=== PATIENT | female | born 1935 | race Caucasian/White ===

== ENCOUNTER 2019-06-30 09:35 | Inpatient (IN) | payer MEDICARE, OTHER ==
[~2019-06-30] VITALS: Ht 162.6 cm; Wt 70.0 kg
[2019-06-30] MEDS: zinc sulfate 220mg capsule PO SCH (08:00)
[~2019-06-30 09:35] MED LIST: ASPI-1265 PO; BIOT10005 PO; CARV12.5 PO; CRAN400C; CYAN-51 PO; DOCU-272; DOXY100T29 PO; ESTR1PAT TD; FENO145T38 PO; FERR325T32 PO; FOLI0.8T PO; FURO-149 PO; ISOS30TA6 PO; LISI40TA4 PO; MULT-1141 PO; NIAC500T7 PO; OMEG-42 PO; OMEP40CA13 PO; OXYC-150 PO; POLY17PO10 PO; POTA20TA19 PO; PRAM0.122 PO; PREG50CA PO; PSYL3.4P5 PO; ROSU10TA2 PO; TICA90TA PO; TRIA15OI9 TOP; ZINC50TA60 PO
[2019-06-30 10:59] LABS: PARTIAL THROMBOPLASTIN TIME 30 SECONDS (22-32)
[2019-06-30 11:01] LABS: ALANINE AMINOTRANSFERASE 21 U/L (12-78); ALBUMIN 2.8 G/DL (3.4-5.0); ALBUMIN/GLOBULIN RATIO 0.8 (1.1-1.5); ALKALINE PHOSPHATASE 62 IU/L (46-116); ANION GAP 8 (8-16); ASPARTATE AMINO TRANSFERASE 19 U/L (10-37); BILIRUBIN,TOTAL 0.3 MG/DL (0.1-1.0); BLOOD UREA NITROGEN 63 MG/DL (7-18); BUN/CREATININE RATIO 20.9 (6.6-38.0); CALCIUM 8.5 MG/DL (8.5-10.1); CHLORIDE 109 MMOL/L (99-107); CREATININE 3.02 MG/DL (0.40-0.90); GLUCOSE 123 MG/DL (70-104); POTASSIUM 3.8 MMOL/L (3.5-5.1); SODIUM 142 MMOL/L (135-145); TOTAL CARBON DIOXIDE 25.1 MMOL/L (24-32); TOTAL PROTEIN 6.2 G/DL (6.4-8.2); eGFR 15 ML/MIN
[2019-06-30 11:13] LABS: BASOPHILS % (AUTO) 0.2 % (0-1); EOSINOPHILS # (AUTO) 0.1 X10'3 (0-0.9); EOSINOPHILS % (AUTO) 2.1 % (0-6); HEMATOCRIT 24.2 % (35.0-45.0); HEMOGLOBIN 8.1 g/dl (12.0-16.0); LYMPHOCYTES # (AUTO) 1.1 X10'3 (1.1-4.8); LYMPHOCYTES % (AUTO) 17.7 % (21-51); MEAN CORPUSCULAR HEMOGLOBIN 31.6 PG (27.0-31.0); MEAN CORPUSCULAR HGB CONC 33.6 g/dL (33.0-36.5); MEAN CORPUSCULAR VOLUME 94.3 FL (78-98); MONOCYTES # (AUTO) 0.4 X10'3 (0-0.9); MONOCYTES % (AUTO) 7.3 % (2-12); NEUTROPHILS # (AUTO) 4.4 X10'3 (1.8-7.7); NEUTROPHILS % (AUTO) 72.7 % (42-75); PLATELET COUNT 201 X10'3 (140-440); RED BLOOD COUNT 2.57 X10'6 (4.20-5.60); WHITE BLOOD COUNT 6.1 X10'3 (4.5-11.0)
[2019-06-30] MEDS ORDERED: ondansetron/PF 4mg/2ml inj IV PRN (12:45)
[2019-06-30] MEDS ORDERED: magnesium Cl slow-release 64mg tablet PO PRN (12:45)
[2019-06-30] MEDS ORDERED: magnesium 2GM in 50ml NS 50 ML IV PRN (12:45)
[2019-06-30] MEDS ORDERED: magnesium 4gm in 100ml NS 100 ML IV PRN (12:45)
[2019-06-30] MEDS ORDERED: morphine 2 MG/ML inj. syringe IV PRN (12:45)
[2019-06-30] MEDS ORDERED: potassium Cl 20 mEq SR tablet PO PRN ×2 (12:45)
[2019-06-30] MEDS ORDERED: potassium CL 10mEq/100ml bag 100 ML IV PRN ×2 (12:45)
[2019-06-30] MEDS ORDERED: acetaminophen 325mg tablet PO PRN ×2 (12:45)
[2019-06-30] MEDS ORDERED: triamcinolone acetonide 0.1% ointment 15gm TP PRN ×2 (15:00→16:23)
[2019-06-30] MEDS ORDERED: CRAN500C4 PO (16:21)
[2019-06-30] MEDS ORDERED: FURO-150 PO (16:21)
[2019-06-30] MEDS ORDERED: CHOL20004 PO (16:21)
--- NOTE | 2019-06-30 16:49 | NUR ---
Received from ER in stable condition. Oriented to room, unit, and plan of care. Call light in reach.
[2019-06-30 18:00] VITALS: BP 187/77
--- NOTE | 2019-06-30 18:20 | NUR ---
Problems reprioritized. Patient report given, questions answered & plan of care reviewed with jeremy. Addendum: 06/30/19 at 1821 by Sagrario Mota RN Problems reprioritized. Patient report given, questions answered & plan of care reviewed with reji.
--- NOTE | 2019-06-30 18:25 | NUR ---
Patient in room PCU 3023. I have received report from Sagrario MEDINA and had the opportunity to ask questions and assume patient care.
[2019-06-30] MEDS: K and/or MAG REPLACEMENT MC SCH (20:00)
[2019-06-30] MEDS: ticagrelor 90mg tablet PO SCH (20:41)
[2019-06-30] MEDS: furosemide 10 MG/1 ML 10ml inj IV SCH (20:41)
[2019-06-30] MEDS: heparin, porcine 5000 units/ml vial SQ SCH (20:42)
[2019-06-30] MEDS: docusate sod 100mg capsule PO SCH (20:42)
[2019-06-30] MEDS: carVEDilol 12.5mg tablet PO SCH (20:42)
[2019-06-30] MEDS: HYDROcodone/acetaminophen 5mg/325mg tablet PO PRN (20:43)
[2019-06-30] MEDS ORDERED: temazepam 15mg capsule PO PRN (21:00)
[2019-06-30] MEDS ORDERED: pramipexole 0.25mg tablet PO SCH (21:00)
[2019-06-30] MEDS ORDERED: pregabalin 75mg capsule PO SCH (21:00)
[2019-06-30 22:00] VITALS: BP 144/69
[2019-07-01 02:00] VITALS: BP 178/73
[2019-07-01 04:00] VITALS: BP 166/80
[2019-07-01 06:00] VITALS: BP 170/62
--- NOTE | 2019-07-01 06:58 | NUR ---
Problems reprioritized. Patient report given, questions answered & plan of care reviewed with Amy MEDINA.
--- NOTE | 2019-07-01 07:10 | NUR ---
Patient in room PCU 3023B. I have received report from Guillermina MEDINA and had the opportunity to ask questions and assume patient care. Patient laying in bed, eyes closed. VS stable at this time.
[2019-07-01] MEDS ORDERED: pregabalin 25mg capsule PO SCH (07:30)
[2019-07-01] MEDS ORDERED: pantoprazole 40mg Tablet.DR PO SCH (07:30)
[2019-07-01] MEDS ORDERED: ferrous sulfate 325mg tablet PO SCH (08:00)
[2019-07-01] MEDS: K and/or MAG REPLACEMENT MC SCH (08:00)
[2019-07-01] MEDS ORDERED: isosorbide mononitrate 30mg tab.SR.24H PO SCH (08:00)
[2019-07-01] MEDS ORDERED: DOXYCYCLINE 100MG CAPSULE PO SCH (08:00)
[2019-07-01] MEDS ORDERED: aspirin 81mg tablet.DR PO SCH (08:00)
[2019-07-01] MEDS ORDERED: lisinopril 20mg tablet PO SCH (08:00)
[2019-07-01] MEDS ORDERED: atorvastatin 20mg tablet PO SCH (08:00)
[2019-07-01] MEDS: docusate sod 100mg capsule PO SCH (08:00)
[2019-07-01] MEDS ORDERED: fenofibrate 145mg tablet PO SCH (08:00)
[2019-07-01 08:40] LABS: BASOPHILS % (AUTO) 0.3 % (0-1); EOSINOPHILS % (AUTO) 0.6 % (0-6); HEMATOCRIT 25.7 % (35.0-45.0); HEMOGLOBIN 8.5 g/dl (12.0-16.0); LYMPHOCYTES % (AUTO) 13.5 % (21-51); MEAN CORPUSCULAR HEMOGLOBIN 31.2 PG (27.0-31.0); MEAN CORPUSCULAR HGB CONC 33.1 g/dL (33.0-36.5); MEAN CORPUSCULAR VOLUME 94.2 FL (78-98); MEAN PLATELET VOLUME 8.9 FL (7.4-10.4); MONOCYTES # (AUTO) 0.4 X10'3 (0-0.9); MONOCYTES % (AUTO) 5.7 % (2-12); NEUTROPHILS # (AUTO) 5.9 X10'3 (1.8-7.7); NEUTROPHILS % (AUTO) 79.9 % (42-75); PLATELET COUNT 221 X10'3 (140-440); RED BLOOD COUNT 2.72 X10'6 (4.20-5.60); RED CELL DISTRIBUTION WIDTH 14.6 % (11.5-14.5); WHITE BLOOD COUNT 7.4 X10'3 (4.5-11.0)
[2019-07-01 09:06] LABS: ALBUMIN 2.8 G/DL (3.4-5.0); ANION GAP 9 (8-16); BLOOD UREA NITROGEN 61 MG/DL (7-18); BUN/CREATININE RATIO 21.3 (6.6-38.0); CALCIUM 8.4 MG/DL (8.5-10.1); CHLORIDE 108 MMOL/L (99-107); CHOL/HDL RATIO 3.7 (0.00-4.99); CHOLESTEROL 114 MG/DL (0-200); CREATININE 2.87 MG/DL (0.40-0.90); GLUCOSE 168 MG/DL (70-104); HDL CHOLESTEROL 31 MG/DL (35-60); LDL CHOLESTEROL 50 MG/DL (50-100); POTASSIUM 3.7 MMOL/L (3.5-5.1); SODIUM 143 MMOL/L (135-145); TOTAL CARBON DIOXIDE 26.5 MMOL/L (24-32); TRIGLYCERIDES 236 MG/DL (20-135); eGFR 16 ML/MIN
[2019-07-01] MEDS: ticagrelor 90mg tablet PO SCH (09:12)
[2019-07-01] MEDS: furosemide 10 MG/1 ML 10ml inj IV SCH (09:12)
[2019-07-01] MEDS: carVEDilol 12.5mg tablet PO SCH (09:13)
[2019-07-01] MEDS: zinc sulfate 220mg capsule PO SCH (09:17)
[2019-07-01] MEDS: heparin, porcine 5000 units/ml vial SQ SCH (09:17)
[2019-07-01] MEDS: HYDROcodone/acetaminophen 5mg/325mg tablet PO PRN (09:18)
[2019-07-01] MEDS ORDERED: pneumococcal 23-VAL P-sac vacc 25 mcg/0.5ml vial IMVAC ONE (10:00)
[2019-07-01] MEDS ORDERED: FLU VACC QS 2019-20 (6 MOS UP) 60 MCG/0.5 ML VIAL IMVAC ONE (10:00)
[2019-07-01 11:00] VITALS: BP 172/61
--- NOTE | 2019-07-01 15:08 | NUR ---
Per MD order, Dr. Burrows, patient is stable for discharge home. Discharge packet printed and reviewed with patient. No new prescriptions to call to pharmacy. IV removed, tele monitor removed. All belongings sent with patient. All questions answered. Patient discharged home, escorted to private vehicle via wheelchair to go home with family.
== END 2019-07-01 15:30 | disposition home health service (06) | DRG 190 ==
LOC: ER 09:35 → ED HOLD 12:50 → PCU 3S 14:46
PROVIDERS: ADMIT Internal Medicine; ATTEND Internal Medicine
PROC: 3E0234Z Introduction of Serum, Toxoid and Vaccine into Muscle, Percutaneous Approach (ICD-10-PCS; principal; 2019-07-01)
DX: J44.1 Chronic obstructive pulmonary disease with (acute) exacerbation (principal); I50.33 Acute on chronic diastolic (congestive) heart failure; L12.0 Bullous pemphigoid; D63.8 Anemia in other chronic diseases classified elsewhere; E78.5 Hyperlipidemia, unspecified; G89.4 Chronic pain syndrome; I25.10 Atherosclerotic heart disease of native coronary artery without angina pectoris; N18.3 Chronic kidney disease, stage 3 (moderate); Z23 Encounter for immunization; Z88.2 Allergy status to sulfonamides; Z88.8 Allergy status to other drugs, medicaments and biological substances; Z88.5 Allergy status to narcotic agent; Z82.3 Family history of stroke; Z80.9 Family history of malignant neoplasm, unspecified
CPT/HCPCS: 36415; 71045; 80048; 80053; 80061; 83735; 83880; 85025; 85610; 85730; 86885; 86900; 86901; 87081; 90732; 93005; 93306; 97161; 97530; 99285; G0378; J1644; J1940

== ENCOUNTER 2019-11-27 10:50 | Emergency (ER) | payer MEDICARE, OTHER ==
[~2019-11-27] VITALS: Ht 162.6 cm; Wt 77.3 kg
[~2019-11-27 10:50] MED LIST changes: -BIOT10005 PO; +CHOL20004 PO; -CRAN400C; -CYAN-51 PO; -DOCU-272; -ESTR1PAT TD; -FOLI0.8T PO; +FURO-150 PO; -NIAC500T7 PO; -OMEG-42 PO; -POTA20TA19 PO
[2019-11-27] MEDS ORDERED: bacitracin 15gm ointment TP ONE (11:20)
[2019-11-27] MEDS ORDERED: normal saline 1000ML IV soln IV ONE (11:20)
[2019-11-27 11:49] LABS: BASOPHILS % (AUTO) 0.1 % (0-1); EOSINOPHILS % (AUTO) 0 % (0-6); HEMATOCRIT 29.7 % (35.0-45.0); HEMOGLOBIN 9.6 g/dl (12.0-16.0); LYMPHOCYTES # (AUTO) 0.6 X10'3 (1.1-4.8); LYMPHOCYTES % (AUTO) 4.2 % (21-51); MEAN CORPUSCULAR HEMOGLOBIN 28.9 PG (27.0-31.0); MEAN CORPUSCULAR HGB CONC 32.4 g/dL (33.0-36.5); MEAN CORPUSCULAR VOLUME 89.4 FL (78-98); MEAN PLATELET VOLUME 8.9 FL (7.4-10.4); MONOCYTES # (AUTO) 0.4 X10'3 (0-0.9); MONOCYTES % (AUTO) 2.8 % (2-12); NEUTROPHILS # (AUTO) 14.1 X10'3 (1.8-7.7); NEUTROPHILS % (AUTO) 92.9 % (42-75); PLATELET COUNT 306 X10'3 (140-440); RED BLOOD COUNT 3.32 X10'6 (4.20-5.60); RED CELL DISTRIBUTION WIDTH 15.7 % (11.5-14.5); WHITE BLOOD COUNT 15.2 X10'3 (4.5-11.0)
[2019-11-27 11:51] LABS: ALANINE AMINOTRANSFERASE 13 U/L (12-78); ALBUMIN 2.4 G/DL (3.4-5.0); ALBUMIN/GLOBULIN RATIO 0.6 (1.1-1.5); ALKALINE PHOSPHATASE 68 IU/L (46-116); ANION GAP 14 (8-16); ASPARTATE AMINO TRANSFERASE 30 U/L (10-37); BLOOD UREA NITROGEN 48 MG/DL (7-18); BUN/CREATININE RATIO 17.1 (6.6-38.0); CALCIUM 7.8 MG/DL (8.5-10.1); CHLORIDE 110 MMOL/L (99-107); CREATININE 2.81 MG/DL (0.40-0.90); GLUCOSE 111 MG/DL (70-104); POTASSIUM 3.6 MMOL/L (3.5-5.1); SODIUM 146 MMOL/L (135-145); TOTAL CARBON DIOXIDE 22.2 MMOL/L (24-32); TOTAL PROTEIN 6.3 G/DL (6.4-8.2); eGFR 16 ML/MIN
[2019-11-27] MEDS ORDERED: CefTRIAXone 2gm/D5W 50ml 50 ML IV ONE (12:10)
[2019-11-27 13:01] LABS: CLARITY,URINE SLIGHTLY CLOUDY (Clear); GLUCOSE, URINE NEGATIVE (Neg); KETONES,URINE TRACE mg/dl (Neg); LEUKOCYTE ESTERASE ,URINE SMALL (Neg); NITRITES, URINE POSITIVE (Neg); OCCULT BLOOD,URINE SMALL (Neg); PROTEIN,URINE >=300 mg/dl (Neg)
[2019-11-27 13:06] LABS: COLOR,URINE DARK YELLOW (Yellow); UA COLLECTION TYPE CLN CATCH MIDSTREAM
[2019-11-27 13:07] LABS: WBC,URINE 30-50 /HPF (0-4)
[2019-11-27 13:08] LABS: BACTERIA,URINE 4+ /HPF (Neg); MUCUS STRANDS FEW /LPF (Neg); RBC,URINE 0-2 /HPF (0-2); SQUAMOUS EPITHELIAL CELL,UR FEW /LPF (FEW); WBC CLUMPS,URINE MODERATE /HPF (NEGATIVE)
[2019-11-27] MEDS ORDERED: CEPH250T PO (13:29)
[2019-11-27 14:06] VITALS: BP 114/61
== END 2019-11-27 14:09 | disposition home or self-care (01) ==
LOC: ER 10:50
DX: N39.0 Urinary tract infection, site not specified (principal); L03.116 Cellulitis of left lower limb; L03.115 Cellulitis of right lower limb; L12.0 Bullous pemphigoid; R50.9 Fever, unspecified; Z86.73 Personal history of transient ischemic attack (TIA), and cerebral infarction without residual deficits; J44.9 Chronic obstructive pulmonary disease, unspecified; Z88.2 Allergy status to sulfonamides; Z88.5 Allergy status to narcotic agent; Z79.82 Long term (current) use of aspirin; Z79.899 Other long term (current) drug therapy
CPT/HCPCS: 36415; 71045; 80053; 81001; 83605; 84145; 85025; 87040; 87088; 96365; 99284; J0696; J7030; 87186

== ENCOUNTER 2020-01-08 23:51 | Inpatient (IN) | payer MEDICARE, OTHER ==
[~2020-01-08] VITALS: Ht 162.6 cm; Wt 76.2 kg
[2020-01-09] MEDS ORDERED: AMLO5TAB PO (00:13)
[2020-01-09] MEDS ORDERED: normal saline 1000ML IV soln IVB ONE (00:25)
[2020-01-09 00:41] LABS: BASOPHILS % (AUTO) 0.2 % (0-1); EOSINOPHILS # (AUTO) 0.1 X10'3 (0-0.9); EOSINOPHILS % (AUTO) 1.5 % (0-6); HEMATOCRIT 28.1 % (35.0-45.0); HEMOGLOBIN 8.9 g/dl (12.0-16.0); LYMPHOCYTES # (AUTO) 0.9 X10'3 (1.1-4.8); LYMPHOCYTES % (AUTO) 13.3 % (21-51); MEAN CORPUSCULAR HEMOGLOBIN 29.3 PG (27.0-31.0); MEAN CORPUSCULAR HGB CONC 31.8 g/dL (33.0-36.5); MEAN CORPUSCULAR VOLUME 92.3 FL (78-98); MONOCYTES # (AUTO) 0.4 X10'3 (0-0.9); MONOCYTES % (AUTO) 5.6 % (2-12); NEUTROPHILS # (AUTO) 5.1 X10'3 (1.8-7.7); NEUTROPHILS % (AUTO) 79.4 % (42-75); PLATELET COUNT 205 X10'3 (140-440); RED BLOOD COUNT 3.05 X10'6 (4.20-5.60); RED CELL DISTRIBUTION WIDTH 18.3 % (11.5-14.5); WHITE BLOOD COUNT 6.4 X10'3 (4.5-11.0)
[2020-01-09 00:47] LABS: CLARITY,URINE SLIGHTLY CLOUDY (Clear); COLOR,URINE YELLOW (Yellow); GLUCOSE, URINE NEGATIVE (Neg); KETONES,URINE TRACE mg/dl (Neg); LEUKOCYTE ESTERASE ,URINE NEGATIVE (Neg); NITRITES, URINE NEGATIVE (Neg); OCCULT BLOOD,URINE NEGATIVE (Neg); PH,URINE 5.5 (4.8-8.0); PROTEIN,URINE >=300 mg/dl (Neg); UROBILINOGEN,URINE 0.2 E.U/dL (0.2-1.0)
[2020-01-09 00:49] LABS: UA COLLECTION TYPE STRAIGHT CATH
[2020-01-09 00:51] LABS: WBC,URINE 0-4 /HPF (0-4)
[2020-01-09 00:52] LABS: AMORPHOUS URATES 4+; BACTERIA,URINE NONE SEEN /HPF (Neg); RBC,URINE NONE SEEN /HPF (0-2); SQUAMOUS EPITHELIAL CELL,UR FEW /LPF (FEW)
[2020-01-09 00:59] LABS: ALANINE AMINOTRANSFERASE 20 U/L (12-78); ALBUMIN 2.3 G/DL (3.4-5.0); ALBUMIN/GLOBULIN RATIO 0.7 (1.1-1.5); ALKALINE PHOSPHATASE 54 IU/L (46-116); ANION GAP 16 (8-16); ASPARTATE AMINO TRANSFERASE 33 U/L (10-37); BILIRUBIN,TOTAL 0.5 MG/DL (0.1-1.0); BLOOD UREA NITROGEN 79 MG/DL (7-18); BUN/CREATININE RATIO 16.2 (6.6-38.0); CALCIUM 7.5 MG/DL (8.5-10.1); CHLORIDE 110 MMOL/L (99-107); CREATININE 4.89 MG/DL (0.40-0.90); GLUCOSE 106 MG/DL (70-104); POTASSIUM 4.2 MMOL/L (3.5-5.1); SODIUM 143 MMOL/L (135-145); TOTAL PROTEIN 5.7 G/DL (6.4-8.2); eGFR 8 ML/MIN
[2020-01-09] MEDS ORDERED: magnesium hydroxide 30ml (MOM) UD suspension PO PRN (01:50)
[2020-01-09] MEDS ORDERED: potassium CL 10mEq/100ml bag 100 ML IV PRN ×2 (01:50)
[2020-01-09] MEDS ORDERED: acetaminophen 325mg tablet PO PRN ×2 (01:50→19:10)
[2020-01-09] MEDS ORDERED: ondansetron/PF 4mg/2ml inj IV PRN (01:50)
[2020-01-09] MEDS ORDERED: potassium Cl 20 mEq SR tablet PO PRN ×2 (01:50)
[2020-01-09] MEDS ORDERED: magnesium Cl slow-release 64mg tablet PO PRN (01:50)
[2020-01-09] MEDS ORDERED: bisacodyl 10mg suppository rectal RC PRN (01:50)
[2020-01-09] MEDS ORDERED: mag hydrox/Alum hydrox/simeth 30ml oral suspension PO PRN (01:50)
[2020-01-09] MEDS ORDERED: magnesium 4gm in 100ml NS 100 ML IV PRN (01:50)
[2020-01-09] MEDS ORDERED: magnesium 2GM in 50ml NS 50 ML IV PRN (01:50)
[2020-01-09] MEDS: normal saline 1000ml 1,000 ML IV SCH ×4 (02:04→15:44)
[2020-01-09 02:30] VITALS: BP 131/45
--- NOTE | 2020-01-09 02:30 | NUR ---
0200:Patient in room LAVERN 354. I have received report from ED RN, and had the opportunity to ask questions and assume patient care. Patient arrived to unit, via Fabule transporting patient.
--- NOTE | 2020-01-09 06:46 | NUR ---
Problems reprioritized. Patient report given, questions answered & plan of care reviewed with Joselyn and CAROL Juarez.
--- NOTE | 2020-01-09 07:00 | NUR ---
Patient in room LAV[facility] 354. I have received report from Corey MEDINA and had the opportunity to ask questions and assume patient care.
[2020-01-09 08:00] VITALS: BP 148/73
[2020-01-09] MEDS: carVEDilol 12.5mg tablet PO SCH ×2 (08:00→21:46)
[2020-01-09] MEDS: K and/or MAG REPLACEMENT MC SCH ×2 (08:00→20:00)
[2020-01-09] MEDS: ferrous sulfate 325mg tablet PO SCH (08:00)
[2020-01-09] MEDS ORDERED: furosemide 40mg tablet PO SCH (08:00)
[2020-01-09] MEDS ORDERED: lisinopril 20mg tablet PO SCH (08:00)
[2020-01-09] MEDS: amLODIPine 5mg tablet PO SCH (08:00)
[2020-01-09] MEDS ORDERED: pregabalin 25mg capsule PO SCH ×2 (08:00→21:00)
[2020-01-09] MEDS ORDERED: etomidate 2mg/ml inj. ONE (08:00)
[2020-01-09] MEDS: pantoprazole 40mg Tablet.DR PO SCH (08:00)
[2020-01-09] MEDS: docusate sod 100mg capsule PO SCH ×2 (08:00→21:46)
[2020-01-09] MEDS ORDERED: sod chloride 0.9% 10ml flush syringe IV ONE (08:00)
[2020-01-09] MEDS: isosorbide mononitrate 30mg tab.SR.24H PO SCH (08:00)
[2020-01-09] MEDS: aspirin 81mg tab.chew PO SCH (08:00)
--- NOTE | 2020-01-09 08:57 | NUR ---
MESSAGE: José Miguel Vera, Rm 354A. Pt difficult to arouse, answers quietly but appropriately. extremeties cold, Cap refill +, pulses hard to palpate. lungs clear, edematous, VS 138/67,95% RA,HR 65, temp 96.6 Ax. Would you please come see her. Ann [phone]
--- NOTE | 2020-01-09 09:30 | NUR ---
Pt somulent, not responding well, pt PO meds held until Dr Ivy assess. Concerns regarding pt's ability to swallow.
--- NOTE | 2020-01-09 10:43 | NUR ---
PAGER ID: [phone] MESSAGE: [phone] José Miguel Polklley- Pt is still very sleepy, A & Ox4, Extremely edematous throughout 4+ pitting.All PO meds held, pt unable to follow commands.BUN79,CR4.89, GFR8. IVF ns@100- CHF can we decrease fluids?Keyon consult? Thank you Ann/Joselyn
[2020-01-09 11:00] VITALS: BP 136/64
--- NOTE | 2020-01-09 11:36 | NUR ---
Patients Michael called to check on his 's status. I asked Michael if his was seeing a kidney doctor and he stated that she see's Dr Lopez. Patient stated that she does still void and has never had dialysis. I asked Michael when was the last time patient took her Lyrica and he stated yesterday morning 50mg. 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 I called Anna with wound care and made her aware of the above dressing changes patient does at home. Primary RN Miguel aware of above information and that patients would like Dr Dimas to call if possible after he see's patient. Michael states if phone goes to voice mail to start talking he screens all his calls.
--- NOTE | 2020-01-09 12:15 | NUR ---
Dr Ivy at pt's bedside. Advised of nonadmin of morning meds. Orders received.
--- NOTE | 2020-01-09 14:19 | NUR ---
Spoke with Dr. Dimas regarding request for extended piv for patient. Per ok to not place extended due to patients elevated creatinine . Ann RN made aware. Pt does have a working PIV, and lab sonya pt with no difficulty while I was in the room. Jaleel Hamilton PICC RN
--- NOTE | 2020-01-09 15:00 | NUR ---
RECEIVED TELEPHONE REPORT FROM CAROL TAVARES
--- NOTE | 2020-01-09 15:13 | NUR ---
Problems reprioritized. Patient report given, questions answered & plan of care reviewed with Selvin RN PCU.
--- NOTE | 2020-01-09 15:20 | NUR ---
Pt transferred to PCU via hospital bed, accompanied by 2 RNs. Pt and all personal belongings to room 3013A. Care assumed by Selvin MEDINA PCU.
[2020-01-09 15:30] VITALS: BP 117/45
--- NOTE | 2020-01-09 15:30 | NUR ---
RECEIVED VIA BED FROM SURGICAL. AGREE WITH PRIOR ASSESSMENT.
--- NOTE | 2020-01-09 16:31 | NUR ---
IS AROUSABLE TO VOICE. TRYS TO SAY A WORK, VERY SOFT/WEAK VOICE, THE APPEARS TO GO BACK TO SLEEP.
--- NOTE | 2020-01-09 17:06 | NUR ---
PAGER ID: [phone] MESSAGE: DR. ANDRE, [id number], WHEN AWAKE, C/O 10 BACK PAIN. DO YOU WANT HER TO HAVE ANY PAIN MEDICATION PER IV? MARIAH [phone]. TY.
[2020-01-09 18:00] VITALS: BP 143/61
--- NOTE | 2020-01-09 18:36 | NUR ---
Problems reprioritized. Patient report given, questions answered & plan of care reviewed with CAROL POST.
[2020-01-09] MEDS ORDERED: pramipexole 0.25mg tablet PO SCH (21:00)
[2020-01-09] MEDS: CEFEPIME 2gm in D5W 50mL 50 ML IV SCH (21:45)
[2020-01-09 21:52] VITALS: BP 130/52
[2020-01-10] VITALS (24 sets, daily range): BP systolic 78–148; BP diastolic 32–92
[2020-01-10] MEDS: normal saline 1000ml 1,000 ML IV SCH (03:11)
--- NOTE | 2020-01-10 03:15 | NUR ---
paged DR. Claire about pt's getting NS at 100, [place] [address], swelling in her vigina and BLE, lungs are clear. Dr. Claire ordered NS @50cc/hr, noted. Addendum: 01/10/20 at 0318 by Carey Quick RN also notified Dr. Claire about pt's output of only 35cc since the start of the shift, bladder scanned pt and only has 10cc oin her bladder
--- NOTE | 2020-01-10 03:22 | NUR ---
Patient in room U 3013. I have received report from CAROL Montalvo and had the opportunity to ask questions and assume patient care. Addendum: 01/10/20 at 0322 by Carey Quick RN Amended: Links added.
[2020-01-10 06:09] LABS: BASOPHILS % (AUTO) 0.1 % (0-1); EOSINOPHILS % (AUTO) 0 % (0-6); HEMOGLOBIN 9.1 g/dl (12.0-16.0); LYMPHOCYTES # (AUTO) 0.9 X10'3 (1.1-4.8); LYMPHOCYTES % (AUTO) 11.2 % (21-51); MEAN CORPUSCULAR HEMOGLOBIN 29.2 PG (27.0-31.0); MEAN CORPUSCULAR HGB CONC 31.4 g/dL (33.0-36.5); MEAN CORPUSCULAR VOLUME 92.9 FL (78-98); MEAN PLATELET VOLUME 10.2 FL (7.4-10.4); MONOCYTES # (AUTO) 0.3 X10'3 (0-0.9); MONOCYTES % (AUTO) 3.8 % (2-12); NEUTROPHILS # (AUTO) 6.9 X10'3 (1.8-7.7); NEUTROPHILS % (AUTO) 84.9 % (42-75); PLATELET COUNT 210 X10'3 (140-440); RED BLOOD COUNT 3.12 X10'6 (4.20-5.60); RED CELL DISTRIBUTION WIDTH 18.7 % (11.5-14.5); WHITE BLOOD COUNT 8.1 X10'3 (4.5-11.0)
[2020-01-10 06:32] LABS: ALANINE AMINOTRANSFERASE 20 U/L (12-78); ALBUMIN 2.1 G/DL (3.4-5.0); ALBUMIN/GLOBULIN RATIO 0.6 (1.1-1.5); ALKALINE PHOSPHATASE 46 IU/L (46-116); ANION GAP 22 (8-16); ASPARTATE AMINO TRANSFERASE 34 U/L (10-37); BILIRUBIN,TOTAL 0.7 MG/DL (0.1-1.0); BLOOD UREA NITROGEN 88 MG/DL (7-18); BUN/CREATININE RATIO 16.4 (6.6-38.0); CALCIUM 7.7 MG/DL (8.5-10.1); CHLORIDE 110 MMOL/L (99-107); CREATININE 5.38 MG/DL (0.40-0.90); GLUCOSE 110 MG/DL (70-104); MAGNESIUM 2.8 MG/DL (1.5-2.4); POTASSIUM 4.6 MMOL/L (3.5-5.1); SODIUM 143 MMOL/L (135-145); TOTAL PROTEIN 5.5 G/DL (6.4-8.2); eGFR 8 ML/MIN
[2020-01-10 06:37] LABS: HEMOGLOBIN A1C 5.2 % (4.5-6.2)
[2020-01-10 06:42] LABS: TOTAL CARBON DIOXIDE 10.8 MMOL/L (24-32)
--- NOTE | 2020-01-10 06:50 | NUR ---
Patient in room PCU 3013. I have received report from Loreto Garcia RN and had the opportunity to ask questions and assume patient care.
[2020-01-10 06:53] LABS: ANISOCYTOSIS 2+; PLATELET ESTIMATE NORMAL
--- NOTE | 2020-01-10 06:56 | NUR ---
Problems reprioritized. Patient report given, questions answered & plan of care reviewed with CAROL Giles.
--- NOTE | 2020-01-10 07:25 | NUR ---
Notified Dr. Ivy this am that "pt kelin in 13A, only 185 urine output in 24 hrs and has critical CO2 this am of 10.8." Addendum: 01/10/20 at 1440 by June Lorenz RN Dr. Olivera
[2020-01-10] MEDS: aspirin 81mg tab.chew PO SCH (07:55)
[2020-01-10] MEDS: carVEDilol 12.5mg tablet PO SCH ×2 (07:55→21:25)
[2020-01-10] MEDS: pantoprazole 40mg Tablet.DR PO SCH (07:55)
[2020-01-10] MEDS: ferrous sulfate 325mg tablet PO SCH (07:55)
[2020-01-10] MEDS: isosorbide mononitrate 30mg tab.SR.24H PO SCH (07:55)
[2020-01-10] MEDS: docusate sod 100mg capsule PO SCH ×2 (07:55→20:00)
[2020-01-10] MEDS: levoTHYROXINE 75mcg tablet PO SCH (07:55)
[2020-01-10] MEDS: CEFEPIME 2gm in D5W 50mL 50 ML IV SCH ×2 (07:56→22:13)
[2020-01-10] MEDS: amLODIPine 5mg tablet PO SCH (08:00)
[2020-01-10] MEDS: K and/or MAG REPLACEMENT MC SCH ×2 (08:00→20:00)
[2020-01-10 12:45] LABS: ABG BASE EXCESS -19.8 mmol/L (-2.0-2.0); ABG HCO3 8.4 mmol/L (22.0-26.0); ABG OXYGEN SATURATION 96.4 % (94-97); ABG PCO2 (T) 27.7 mmHg (32.0-45.0); ABG PO2 (T) 108.5 mmHg (75.0-100.0); ALLEN'S TEST POSITIVE; FCOHb 0.3 % (0.0-3.9); FLOW 4 L/min; FMetHb 0.3 % (0.0-1.5); FO2Hb 95.8 % (94-97); TOTAL HEMOGLOBIN 9.9 G/dl (12.0-16.0)
[2020-01-10] MEDS: sodium bicarbonate (8.4%) inj. 100 MEQ in dextrose 5%-water 1,000 ML IV SCH ×2 (12:49→20:16)
--- NOTE | 2020-01-10 13:00 | NUR ---
MULTIPLE ATTEMPTS TO THREAD PICC LINE, UNABLE TO ADVANCE, PICC LINE CUT TO MIDLINE LENGTH AND SECURED. YA MEDINA NOTIFIED Addendum: 01/10/20 at 1323 by Annmarie Hamilton RN Jaleel [facility] RN
[2020-01-10] MEDS ORDERED: FENTANYL-0.9 % NACL/PF 100 ML IV PRN (13:36)
[2020-01-10] MEDS ORDERED: midazolam 100mg in NS 100ml 100 ML IV PRN (13:36)
[2020-01-10] MEDS ORDERED: NORepinephrine 8mg/ 250ml NS 250 ML IV ONE ×2 (13:39→22:02)
[2020-01-10] MEDS ORDERED: midazolam 2 mg/2 ml injection IV ONE (13:40)
[2020-01-10] MEDS ORDERED: ipratropium/albuterol 3ml nebule NEB PRN (13:40)
[2020-01-10] MEDS ORDERED: etomidate 2mg/ml inj. IV ONE (13:40)
--- NOTE | 2020-01-10 13:45 | NUR ---
Pt arrived via bed from floor. A&O x3 at this time. Dr. Lopez spoke with patient about treatment options and pt agreed to get HD at this time and be intubated. Pt's main concern was she did not want to have a lot of pain. Pt was sedated with Etomidate, versed and fentanyl during intubation, HD and Quad lumen cath placement. Versed and Fentanyl drips started. Pt's BP declining after HD started so Levophed was started and titrated.
--- NOTE | 2020-01-10 13:50 | NUR ---
Spoke with FITNESS CONSULTANT to give report, ICU nurse states that Lynda charge aide is aware of patient (present upon rapid response for this patient and will give report to receiving nurse.
[2020-01-10] MEDS: fentaNYL/PF 50MCG/1 ML 2ML syringe IV PRN ×4 (13:58→14:14)
--- NOTE | 2020-01-10 14:00 | NUR ---
Transferred patient down to ICU room 2014A with CAROL Howell at bedside and receiving nurse CAROL Hernandez.
[2020-01-10] MEDS ORDERED: heparin 1,000unit/ml 10ml vial 10 ML IV ONE (14:36)
[2020-01-10] MEDS ORDERED: normal saline 1000ml 100 ML IV PRN (14:36)
[2020-01-10] MEDS ORDERED: normal saline 1000ml 250 ML IV PRN (14:36)
[2020-01-10] MEDS ORDERED: heparin 1,000 units/ml 10ml inj HE ONE ×2 (14:40)
[2020-01-10] MEDS: ipratropium/albuterol 3ml nebule NEB SCH ×3 (15:26→23:25)
[2020-01-10 15:56] LABS: ABG BASE EXCESS -15.7 mmol/L (-2.0-2.0); ABG HCO3 10.7 mmol/L (22.0-26.0); ABG OXYGEN SATURATION 97.7 % (94-97); ABG PCO2 (T) 27.2 mmHg (32.0-45.0); ABG PO2 (T) 128.1 mmHg (75.0-100.0); FCOHb 0.3 % (0.0-3.9); FO2Hb 97.4 % (94-97); PEEP 5 cm H2O; RESPIRATORY RATE 18 b/min; TIDAL VOLUME 350 mL; TOTAL HEMOGLOBIN 9.7 G/dl (12.0-16.0)
--- NOTE | 2020-01-10 18:20 | NUR ---
Called Pt's and gave update on status and today's events.
[2020-01-10 20:10] LABS: BASOPHILS % (AUTO) 0.1 % (0-1); EOSINOPHILS % (AUTO) 0 % (0-6); HEMATOCRIT 31.6 % (35.0-45.0); HEMOGLOBIN 10.2 g/dl (12.0-16.0); LYMPHOCYTES # (AUTO) 1.3 X10'3 (1.1-4.8); LYMPHOCYTES % (AUTO) 7.6 % (21-51); MEAN CORPUSCULAR HEMOGLOBIN 29.6 PG (27.0-31.0); MEAN CORPUSCULAR HGB CONC 32.3 g/dL (33.0-36.5); MEAN CORPUSCULAR VOLUME 91.5 FL (78-98); MEAN PLATELET VOLUME 10.4 FL (7.4-10.4); MONOCYTES # (AUTO) 0.8 X10'3 (0-0.9); MONOCYTES % (AUTO) 4.7 % (2-12); NEUTROPHILS # (AUTO) 14.8 X10'3 (1.8-7.7); NEUTROPHILS % (AUTO) 87.6 % (42-75); PLATELET COUNT 309 X10'3 (140-440); RED BLOOD COUNT 3.45 X10'6 (4.20-5.60); RED CELL DISTRIBUTION WIDTH 18.1 % (11.5-14.5); WHITE BLOOD COUNT 16.9 X10'3 (4.5-11.0)
[2020-01-10 20:23] LABS: PARTIAL THROMBOPLASTIN TIME 43 SECONDS (22-32)
[2020-01-10] MEDS ORDERED: dextrose 50%-water 50ml dispensing syringe IV ONE (20:24)
[2020-01-10 20:25] LABS: ALANINE AMINOTRANSFERASE 20 U/L (12-78); ALBUMIN 2.1 G/DL (3.4-5.0); ALBUMIN/GLOBULIN RATIO 0.6 (1.1-1.5); ALKALINE PHOSPHATASE 52 IU/L (46-116); ANION GAP 17 (8-16); ASPARTATE AMINO TRANSFERASE 39 U/L (10-37); BILIRUBIN,TOTAL 0.8 MG/DL (0.1-1.0); BLOOD UREA NITROGEN 64 MG/DL (7-18); BUN/CREATININE RATIO 15.7 (6.6-38.0); CALCIUM 7.8 MG/DL (8.5-10.1); CHLORIDE 107 MMOL/L (99-107); CREATININE 4.08 MG/DL (0.40-0.90); GLUCOSE 170 MG/DL (70-104); MAGNESIUM 2.5 MG/DL (1.5-2.4); PHOSPHORUS 7.7 MG/DL (2.3-4.5); POTASSIUM 3.9 MMOL/L (3.5-5.1); SODIUM 140 MMOL/L (135-145); TOTAL CARBON DIOXIDE 16.5 MMOL/L (24-32); TOTAL PROTEIN 5.6 G/DL (6.4-8.2); eGFR 10 ML/MIN
--- NOTE | 2020-01-10 21:17 | NUR ---
Patient in room CICU 2013. I have received report from rodolfo gil and had the opportunity to ask questions and assume patient care.
[2020-01-10] MEDS: lactobacillus rhamnosus 10,000 MMU CELLS/CAPSULE PO SCH (21:25)
[2020-01-10] MEDS: NORepinephrine 8mg/ 250ml NS 250 ML IV SCH (22:16)
[2020-01-11] VITALS (24 sets, daily range): BP systolic 83–144; BP diastolic 33–89
[2020-01-11] MEDS: ipratropium/albuterol 3ml nebule NEB SCH ×6 (03:15→23:16)
[2020-01-11 03:19] LABS: BASOPHILS % (AUTO) 0.1 % (0-1); EOSINOPHILS % (AUTO) 0 % (0-6); HEMATOCRIT 32.6 % (35.0-45.0); HEMOGLOBIN 10.3 g/dl (12.0-16.0); LYMPHOCYTES # (AUTO) 1.6 X10'3 (1.1-4.8); LYMPHOCYTES % (AUTO) 12.2 % (21-51); MEAN CORPUSCULAR HGB CONC 31.7 g/dL (33.0-36.5); MEAN CORPUSCULAR VOLUME 91.3 FL (78-98); MEAN PLATELET VOLUME 10.1 FL (7.4-10.4); MONOCYTES # (AUTO) 0.7 X10'3 (0-0.9); NEUTROPHILS # (AUTO) 10.9 X10'3 (1.8-7.7); NEUTROPHILS % (AUTO) 82.7 % (42-75); PLATELET COUNT 340 X10'3 (140-440); RED BLOOD COUNT 3.57 X10'6 (4.20-5.60); RED CELL DISTRIBUTION WIDTH 17.8 % (11.5-14.5); WHITE BLOOD COUNT 13.2 X10'3 (4.5-11.0)
[2020-01-11 03:31] LABS: ABG BASE EXCESS -9.3 mmol/L (-2.0-2.0); ABG HCO3 14.8 mmol/L (22.0-26.0); ABG OXYGEN SATURATION 98.4 % (94-97); ABG PCO2 (T) 28.6 mmHg (32.0-45.0); ABG PO2 (T) 153.7 mmHg (75.0-100.0); ALLEN'S TEST POSITIVE; FCOHb 0.3 % (0.0-3.9); FMetHb 0.3 % (0.0-1.5); FO2Hb 97.8 % (94-97); PATIENT TEMPERATURE 38.4; PEEP 5 cm H2O; RESPIRATORY RATE 18 b/min; TIDAL VOLUME 350 mL; TOTAL HEMOGLOBIN 10.9 G/dl (12.0-16.0)
[2020-01-11 03:35] LABS: ALANINE AMINOTRANSFERASE 17 U/L (12-78); ALBUMIN 1.9 G/DL (3.4-5.0); ALBUMIN/GLOBULIN RATIO 0.6 (1.1-1.5); ALKALINE PHOSPHATASE 47 IU/L (46-116); ANION GAP 15 (8-16); ASPARTATE AMINO TRANSFERASE 37 U/L (10-37); BILIRUBIN,TOTAL 0.6 MG/DL (0.1-1.0); BLOOD UREA NITROGEN 71 MG/DL (7-18); BUN/CREATININE RATIO 15.8 (6.6-38.0); CALCIUM 7.1 MG/DL (8.5-10.1); CHLORIDE 106 MMOL/L (99-107); GLUCOSE 191 MG/DL (70-104); MAGNESIUM 2.3 MG/DL (1.5-2.4); POTASSIUM 4.3 MMOL/L (3.5-5.1); SODIUM 139 MMOL/L (135-145); TOTAL CARBON DIOXIDE 18.1 MMOL/L (24-32); TOTAL PROTEIN 5.3 G/DL (6.4-8.2); eGFR 9 ML/MIN
--- NOTE | 2020-01-11 06:04 | NUR ---
Problems reprioritized. Patient report given, questions answered & plan of care reviewed
[2020-01-11] MEDS: levoTHYROXINE 75mcg tablet PO SCH (07:55)
[2020-01-11] MEDS: ferrous sulfate 325mg tablet PO SCH (07:55)
[2020-01-11] MEDS: CEFEPIME 2gm in D5W 50mL 50 ML IV SCH ×2 (07:56→21:50)
[2020-01-11] MEDS: aspirin 81mg tab.chew PO SCH (07:56)
[2020-01-11] MEDS: lactobacillus rhamnosus 10,000 MMU CELLS/CAPSULE PO SCH ×2 (07:57→21:49)
[2020-01-11] MEDS: amLODIPine 5mg tablet PO SCH (07:58)
[2020-01-11] MEDS: isosorbide mononitrate 30mg tab.SR.24H PO SCH (07:58)
[2020-01-11] MEDS: sodium bicarbonate (8.4%) inj. 100 MEQ in dextrose 5%-water 1,000 ML IV SCH ×2 (07:59→18:46)
[2020-01-11] MEDS: docusate sod 100mg capsule PO SCH (07:59)
[2020-01-11] MEDS ORDERED: heparin 1,000 units/ml 10ml inj HE ONE ×2 (08:00)
[2020-01-11] MEDS: carVEDilol 12.5mg tablet PO SCH ×2 (08:00→21:55)
[2020-01-11] MEDS ORDERED: normal saline 1000ml 250 ML IV PRN (08:00)
[2020-01-11] MEDS: K and/or MAG REPLACEMENT MC SCH ×2 (08:00→20:00)
[2020-01-11] MEDS ORDERED: heparin 1,000unit/ml 10ml vial 10 ML IV ONE (08:00)
[2020-01-11] MEDS ORDERED: dextrose 50%-water 50ml dispensing syringe IV PRN ×2 (09:05)
[2020-01-11] MEDS ORDERED: MESSAGE TO PHARMACY PO ONE (09:05)
[2020-01-11] MEDS ORDERED: glucagon, human recombinant 1mg kit SUBCUT PRN (09:05)
[2020-01-11] MEDS ORDERED: dextrose ORAL solution 15 GM/59 ML bottle PO PRN ×2 (09:05)
[2020-01-11] MEDS: insulin Lispro (HumaLOG) vial - multi-dose SQ SCH ×2 (09:38→15:33)
[2020-01-11] MEDS: NORepinephrine 8mg/ 250ml NS 250 ML IV SCH ×4 (10:07→22:57)
[2020-01-11] MEDS ORDERED: amiodarone/D5 360MG/200ML BAG 200 ML IV SCH (12:46)
--- NOTE | 2020-01-11 13:02 | NUR ---
TF/Praveen Consults: Pt intubated s/p rapid response DX acute respiratory failure, acute on chronic kidney disease s/p short HD w/ no urine output and creatinine increasing, and shock w/ volume depletion per MD. MAP 66 this AM w/ OG in place and EN to start today; recs below given pt needs. Praveen 11 w/ hx bullous pemphigoids and legs wrapped at this time per MD; BLE/BUE +2 pitting, and vaginal/pubis +4 non-pitting edema present w/ unstageable necrotic sacral pressure ulcer per WOC. Julio César powder to be added w/ minimal free water twice daily given pt wound healing needs on HD; RD d/w RN regarding Julio César administration guidelines. Will monitor for EN tolerance. Rec: 1. OGTF using Vital High Protein at 70ml/hr goal; to provide 1680ml fluid, 1680 kcals, 1411ml free water, and 147g protein. 2. Julio César packet twice daily for wounds; to be given w/ 120ml free water and 30ml water flush before/after administration for wound healing needs 3. PALB Q /; daily wts 4. routine bowel care 5. wts w/ HD 6. upon extubation; advance diet as medically indicated to regular Addendum: 01/11/20 at [address] Amended: Links added.
[2020-01-11] MEDS: famotidine/PF 10 mg/ml inj IV SCH ×2 (13:12→21:49)
[2020-01-11] MEDS: heparin, porcine 5000 units/ml vial SQ SCH ×2 (13:13→21:50)
[2020-01-11] MEDS: amiodarone 150mg/dext, iso-os 100 ML IV ONE ×2 (13:35→14:42)
--- NOTE | 2020-01-11 13:38 | NUR ---
Patient converted to afib. MD notified; orders for amio protocol with bolus. While hanging drip, patient dropped HR into 40's nonsustained multiple times. Notified MD; orders to hold off on drip for now and continue to monitor
[2020-01-11] MEDS: mineral oil/petrolatum ophthal oint EACHEYE SCH ×2 (14:00→21:50)
[2020-01-11 17:25] LABS: OXYGEN SATURATION (MIXED VEN) 66.7 % (60-80); PO2 MIXED VENOUS (TEMP COR) 37.2 mmHg (35-46)
--- NOTE | 2020-01-11 18:30 | NUR ---
Patient in room CICU 2013. I have received report from DANIELLA MEDINA & ELSI MEDINA and had the opportunity to ask questions and assume patient care.
[2020-01-11] MEDS ORDERED: ARGININE/GLUTAMINE/CALCIUM BMB (JUVEN 19.3GM PKT) 1 EACH POWD.PACK PO SCH (20:00)
[2020-01-11] MEDS ORDERED: amiodarone 200mg tablet OGT ONE (20:25)
[2020-01-11] MEDS ORDERED: docusate sodium 100mg/10ml UD cup OGT ONE (21:32)
[2020-01-11] MEDS ORDERED: amiodarone 100mg tablet OGT ONE (21:40)
[2020-01-11] MEDS: HYDROcodone/acetaminophen 5mg/325mg tablet PO PRN (21:55)
[2020-01-11] MEDS: insulin glargine (Lantus) pen - multi-dose SQ SCH (22:00)
[2020-01-11] MEDS: insulin regular, human U-100 3ml vial - multi-dose SQ SCH (22:27)
[2020-01-12] VITALS (20 sets, daily range): BP systolic 96–127; BP diastolic 41–66
[2020-01-12] MEDS ORDERED: digoxin 250mcg/ml 2ml ampule IV SCH
[2020-01-12] MEDS: mineral oil/petrolatum ophthal oint EACHEYE SCH ×4 (02:39→20:36)
[2020-01-12] MEDS: insulin regular, human U-100 3ml vial - multi-dose SQ SCH ×4 (02:41→20:41)
[2020-01-12 02:49] LABS: BASOPHILS % (AUTO) 0.1 % (0-1); EOSINOPHILS % (AUTO) 0 % (0-6); HEMATOCRIT 32.4 % (35.0-45.0); HEMOGLOBIN 10.5 g/dl (12.0-16.0); LYMPHOCYTES # (AUTO) 1.5 X10'3 (1.1-4.8); LYMPHOCYTES % (AUTO) 13.6 % (21-51); MEAN CORPUSCULAR HEMOGLOBIN 28.6 PG (27.0-31.0); MEAN CORPUSCULAR HGB CONC 32.4 g/dL (33.0-36.5); MEAN CORPUSCULAR VOLUME 88.3 FL (78-98); MEAN PLATELET VOLUME 9.9 FL (7.4-10.4); MONOCYTES # (AUTO) 0.9 X10'3 (0-0.9); MONOCYTES % (AUTO) 7.9 % (2-12); NEUTROPHILS # (AUTO) 8.9 X10'3 (1.8-7.7); NEUTROPHILS % (AUTO) 78.4 % (42-75); PLATELET COUNT 343 X10'3 (140-440); RED BLOOD COUNT 3.67 X10'6 (4.20-5.60); RED CELL DISTRIBUTION WIDTH 17.3 % (11.5-14.5); WHITE BLOOD COUNT 11.3 X10'3 (4.5-11.0)
[2020-01-12 03:06] LABS: ALANINE AMINOTRANSFERASE 16 U/L (12-78); ALBUMIN 1.5 G/DL (3.4-5.0); ALBUMIN/GLOBULIN RATIO 0.5 (1.1-1.5); ALKALINE PHOSPHATASE 43 IU/L (46-116); ANION GAP 12 (8-16); ASPARTATE AMINO TRANSFERASE 51 U/L (10-37); BILIRUBIN,TOTAL 0.6 MG/DL (0.1-1.0); BLOOD UREA NITROGEN 53 MG/DL (7-18); BUN/CREATININE RATIO 14.3 (6.6-38.0); CALCIUM 6.6 MG/DL (8.5-10.1); CHLORIDE 102 MMOL/L (99-107); CREATININE 3.71 MG/DL (0.40-0.90); GLUCOSE 181 MG/DL (70-104); MAGNESIUM 1.9 MG/DL (1.5-2.4); POTASSIUM 3.8 MMOL/L (3.5-5.1); PREALBUMIN 12.7 MG/DL (19-36); SODIUM 137 MMOL/L (135-145); TOTAL CARBON DIOXIDE 22.7 MMOL/L (24-32); TOTAL PROTEIN 4.8 G/DL (6.4-8.2); eGFR 12 ML/MIN
[2020-01-12] MEDS: ipratropium/albuterol 3ml nebule NEB SCH ×6 (03:24→23:03)
[2020-01-12 05:01] LABS: ABG BASE EXCESS -3.1 mmol/L (-2.0-2.0); ABG HCO3 19.5 mmol/L (22.0-26.0); ABG OXYGEN SATURATION 93.6 % (94-97); ABG PO2 (T) 67.5 mmHg (75.0-100.0); ALLEN'S TEST POSITIVE; FCOHb 0.3 % (0.0-3.9); FMetHb 0.3 % (0.0-1.5); PATIENT TEMPERATURE 36.5; PEEP 5 cm H2O; RESPIRATORY RATE 18 b/min; TIDAL VOLUME 350 mL; TOTAL HEMOGLOBIN 10.8 G/dl (12.0-16.0)
--- NOTE | 2020-01-12 06:16 | NUR ---
Problems reprioritized. Patient report given, questions answered & plan of care reviewed with ELSI MEDINA & DANIELLA MEDINA.
[2020-01-12] MEDS: NORepinephrine 8mg/ 250ml NS 250 ML IV SCH (07:56)
[2020-01-12] MEDS: lactobacillus rhamnosus 10,000 MMU CELLS/CAPSULE PO SCH ×2 (08:00→20:36)
[2020-01-12] MEDS: isosorbide mononitrate 30mg tab.SR.24H PO SCH (08:00)
[2020-01-12] MEDS: carVEDilol 12.5mg tablet PO SCH ×2 (08:00→20:36)
[2020-01-12] MEDS: amLODIPine 5mg tablet PO SCH (08:00)
[2020-01-12] MEDS: K and/or MAG REPLACEMENT MC SCH ×2 (08:00→20:00)
[2020-01-12] MEDS: levoTHYROXINE 75mcg tablet PO SCH (09:00)
[2020-01-12] MEDS: heparin, porcine 5000 units/ml vial SQ SCH ×2 (09:01→20:37)
[2020-01-12] MEDS: CEFEPIME 2gm in D5W 50mL 50 ML IV SCH ×2 (09:01→20:37)
[2020-01-12] MEDS: aspirin 81mg tab.chew PO SCH (09:02)
[2020-01-12] MEDS: ferrous sulfate 325mg tablet PO SCH (09:02)
[2020-01-12] MEDS: docusate sodium 100mg/10ml UD cup OGT SCH ×2 (09:02→20:36)
[2020-01-12] MEDS: famotidine/PF 10 mg/ml inj IV SCH ×2 (09:03→20:37)
[2020-01-12] MEDS: digoxin 250mcg/ml 2ml ampule IV SCH ×2 (09:22→15:55)
[2020-01-12 13:16] LABS: HBSAG SCREEN Negative (Negative)
--- NOTE | 2020-01-12 18:23 | NUR ---
Patient in room CICU 2013. I have received report from DANIELLA MEDINA & ELSI MEDINA and had the opportunity to ask questions and assume patient care.
[2020-01-12] MEDS: insulin glargine (Lantus) pen - multi-dose SQ SCH (20:42)
[2020-01-12 23:21] LABS: ABG BASE EXCESS -2.9 mmol/L (-2.0-2.0); ABG HCO3 20.2 mmol/L (22.0-26.0); ABG OXYGEN SATURATION 95.9 % (94-97); ABG PCO2 (T) 28.8 mmHg (32.0-45.0); ABG PO2 (T) 83.7 mmHg (75.0-100.0); ALLEN'S TEST POSITIVE; FCOHb 0.3 % (0.0-3.9); FMetHb 0.3 % (0.0-1.5); FO2Hb 95.3 % (94-97); PATIENT TEMPERATURE 36.7; PEEP 5 cm H2O; TOTAL HEMOGLOBIN 9.3 G/dl (12.0-16.0)
[2020-01-13] VITALS (24 sets, daily range): BP systolic 102–157; BP diastolic 37–64
[2020-01-13] MEDS: digoxin 250mcg/ml 2ml ampule IV SCH (01:02)
[2020-01-13] MEDS: mineral oil/petrolatum ophthal oint EACHEYE SCH ×4 (02:26→20:26)
[2020-01-13] MEDS: insulin regular, human U-100 3ml vial - multi-dose SQ SCH ×4 (02:32→20:38)
[2020-01-13 02:59] LABS: BASOPHILS % (AUTO) 0.1 % (0-1); EOSINOPHILS % (AUTO) 0.5 % (0-6); HEMOGLOBIN 8.8 g/dl (12.0-16.0); LYMPHOCYTES # (AUTO) 0.5 X10'3 (1.1-4.8); LYMPHOCYTES % (AUTO) 6.8 % (21-51); MEAN CORPUSCULAR HEMOGLOBIN 29.1 PG (27.0-31.0); MEAN CORPUSCULAR HGB CONC 32.7 g/dL (33.0-36.5); MEAN PLATELET VOLUME 9.6 FL (7.4-10.4); MONOCYTES # (AUTO) 0.5 X10'3 (0-0.9); MONOCYTES % (AUTO) 6.8 % (2-12); NEUTROPHILS # (AUTO) 6.7 X10'3 (1.8-7.7); NEUTROPHILS % (AUTO) 85.8 % (42-75); PLATELET COUNT 174 X10'3 (140-440); RED BLOOD COUNT 3.03 X10'6 (4.20-5.60); RED CELL DISTRIBUTION WIDTH 17.6 % (11.5-14.5); WHITE BLOOD COUNT 7.8 X10'3 (4.5-11.0)
[2020-01-13 03:03] LABS: ALANINE AMINOTRANSFERASE 17 U/L (12-78); ALBUMIN 1.3 G/DL (3.4-5.0); ALBUMIN/GLOBULIN RATIO 0.4 (1.1-1.5); ALKALINE PHOSPHATASE 42 IU/L (46-116); ANION GAP 11 (8-16); ASPARTATE AMINO TRANSFERASE 46 U/L (10-37); BILIRUBIN,TOTAL 0.6 MG/DL (0.1-1.0); BLOOD UREA NITROGEN 64 MG/DL (7-18); BUN/CREATININE RATIO 15.5 (6.6-38.0); CALCIUM 6.4 MG/DL (8.5-10.1); CHLORIDE 101 MMOL/L (99-107); CREATININE 4.12 MG/DL (0.40-0.90); GLUCOSE 143 MG/DL (70-104); POTASSIUM 3.9 MMOL/L (3.5-5.1); SODIUM 135 MMOL/L (135-145); TOTAL CARBON DIOXIDE 23.2 MMOL/L (24-32); TOTAL PROTEIN 4.6 G/DL (6.4-8.2); eGFR 10 ML/MIN
[2020-01-13] MEDS: ipratropium/albuterol 3ml nebule NEB SCH ×6 (03:31→23:19)
--- NOTE | 2020-01-13 06:14 | NUR ---
Problems reprioritized. Patient report given, questions answered & plan of care reviewed with DANIELLA MEDINA.
[2020-01-13] MEDS: levoTHYROXINE 75mcg tablet PO SCH (07:00)
[2020-01-13] MEDS: cefepime 2g/NS 100ml ADVANTAGE 100 ML IV SCH ×2 (08:00→20:26)
[2020-01-13] MEDS ORDERED: normal saline 1000ml 250 ML IV PRN (08:00)
[2020-01-13] MEDS: heparin, porcine 5000 units/ml vial SQ SCH ×2 (08:00→20:26)
[2020-01-13] MEDS: lactobacillus rhamnosus 10,000 MMU CELLS/CAPSULE PO SCH ×2 (08:00→20:27)
[2020-01-13] MEDS ORDERED: heparin 1,000 units/ml 10ml inj HE ONE ×2 (08:00)
[2020-01-13] MEDS: carVEDilol 12.5mg tablet PO SCH ×2 (08:00→20:27)
[2020-01-13] MEDS: K and/or MAG REPLACEMENT MC SCH ×2 (08:00→20:00)
[2020-01-13] MEDS: ferrous sulfate 325mg tablet PO SCH (08:00)
[2020-01-13] MEDS: amLODIPine 5mg tablet PO SCH (08:00)
[2020-01-13] MEDS: docusate sodium 100mg/10ml UD cup OGT SCH ×2 (08:00→20:26)
[2020-01-13] MEDS: aspirin 81mg tab.chew PO SCH (08:00)
[2020-01-13] MEDS ORDERED: heparin 1,000unit/ml 10ml vial 10 ML IV ONE (08:00)
[2020-01-13] MEDS: famotidine/PF 10 mg/ml inj IV SCH (08:00)
[2020-01-13] MEDS: isosorbide mononitrate 30mg tab.SR.24H PO SCH (08:00)
--- NOTE | 2020-01-13 18:30 | NUR ---
Patient in room CICU 2013. I have received report from Magdaleno MEDINA and had the opportunity to ask questions and assume patient care.
[2020-01-13] MEDS: famotidine 20mg tablet PO SCH (20:00)
[2020-01-13] MEDS: insulin glargine (Lantus) pen - multi-dose SQ SCH (20:39)
--- NOTE | 2020-01-13 22:12 | NUR ---
Pt has what appears to be a hematoma on left flank where heparin sq was given. Area marked and binder placed as advised by Lit Mcclelland NP.
[2020-01-13] MEDS: NORepinephrine 8mg/ 250ml NS 250 ML IV SCH (22:19)
--- NOTE | 2020-01-13 23:44 | NUR ---
Problems reprioritized. Patient report given, questions answered & plan of care reviewed with Latrice MEDINA.
--- NOTE | 2020-01-13 23:45 | NUR ---
Patient in room CICU 2013. I have received report from CAROL Harris and had the opportunity to ask questions and assume patient care.
[2020-01-14] VITALS (24 sets, daily range): BP systolic 90–138; BP diastolic 36–51
[2020-01-14] MEDS: mineral oil/petrolatum ophthal oint EACHEYE SCH ×4 (02:32→20:46)
[2020-01-14] MEDS: insulin regular, human U-100 3ml vial - multi-dose SQ SCH ×4 (02:35→21:09)
[2020-01-14] MEDS: ipratropium/albuterol 3ml nebule NEB SCH ×6 (03:49→23:16)
[2020-01-14 03:56] LABS: BASOPHILS % (AUTO) 0 % (0-1); EOSINOPHILS # (AUTO) 0.1 X10'3 (0-0.9); EOSINOPHILS % (AUTO) 1.1 % (0-6); HEMOGLOBIN 7.9 g/dl (12.0-16.0); LYMPHOCYTES # (AUTO) 0.3 X10'3 (1.1-4.8); LYMPHOCYTES % (AUTO) 5.6 % (21-51); MEAN CORPUSCULAR HEMOGLOBIN 29.5 PG (27.0-31.0); MEAN CORPUSCULAR HGB CONC 33.1 g/dL (33.0-36.5); MEAN CORPUSCULAR VOLUME 89.1 FL (78-98); MEAN PLATELET VOLUME 10.2 FL (7.4-10.4); MONOCYTES # (AUTO) 0.5 X10'3 (0-0.9); MONOCYTES % (AUTO) 9.5 % (2-12); NEUTROPHILS # (AUTO) 4.7 X10'3 (1.8-7.7); NEUTROPHILS % (AUTO) 83.8 % (42-75); PLATELET COUNT 151 X10'3 (140-440); RED CELL DISTRIBUTION WIDTH 17.7 % (11.5-14.5); WHITE BLOOD COUNT 5.6 X10'3 (4.5-11.0)
[2020-01-14 04:08] LABS: ALANINE AMINOTRANSFERASE 19 U/L (12-78); ALBUMIN 1.2 G/DL (3.4-5.0); ALBUMIN/GLOBULIN RATIO 0.3 (1.1-1.5); ALKALINE PHOSPHATASE 46 IU/L (46-116); ANION GAP 9 (8-16); ASPARTATE AMINO TRANSFERASE 54 U/L (10-37); BILIRUBIN,TOTAL 0.6 MG/DL (0.1-1.0); BLOOD UREA NITROGEN 54 MG/DL (7-18); BUN/CREATININE RATIO 17.1 (6.6-38.0); CALCIUM 6.7 MG/DL (8.5-10.1); CHLORIDE 103 MMOL/L (99-107); CREATININE 3.16 MG/DL (0.40-0.90); GLUCOSE 124 MG/DL (70-104); MAGNESIUM 1.8 MG/DL (1.5-2.4); POTASSIUM 3.9 MMOL/L (3.5-5.1); SODIUM 137 MMOL/L (135-145); TOTAL CARBON DIOXIDE 24.7 MMOL/L (24-32); TOTAL PROTEIN 4.7 G/DL (6.4-8.2); eGFR 14 ML/MIN
[2020-01-14 04:46] LABS: ABG BASE EXCESS -2.2 mmol/L (-2.0-2.0); ABG HCO3 20.3 mmol/L (22.0-26.0); ABG OXYGEN SATURATION 97.8 % (94-97); ABG PCO2 (T) 26.1 mmHg (32.0-45.0); ABG PO2 (T) 107.4 mmHg (75.0-100.0); ALLEN'S TEST POSITIVE; FCOHb 0.3 % (0.0-3.9); FO2Hb 97.5 % (94-97); PATIENT TEMPERATURE 36.4; PEEP 5 cm H2O; TOTAL HEMOGLOBIN 8.4 G/dl (12.0-16.0)
--- NOTE | 2020-01-14 06:31 | NUR ---
Problems reprioritized. Patient report given, questions answered & plan of care reviewed with CAROL Mcdaniel.
[2020-01-14] MEDS: isosorbide mononitrate 30mg tab.SR.24H PO SCH (07:27)
[2020-01-14] MEDS: K and/or MAG REPLACEMENT MC SCH ×2 (08:00→20:00)
[2020-01-14] MEDS: famotidine 20mg tablet PO SCH ×2 (09:23→20:55)
[2020-01-14] MEDS: ferrous sulfate 325mg tablet PO SCH (09:23)
[2020-01-14] MEDS: amLODIPine 5mg tablet PO SCH (09:24)
[2020-01-14] MEDS: lactobacillus rhamnosus 10,000 MMU CELLS/CAPSULE PO SCH ×2 (09:24→20:45)
[2020-01-14] MEDS: levoTHYROXINE 75mcg tablet PO SCH (09:24)
[2020-01-14] MEDS: carVEDilol 12.5mg tablet PO SCH ×2 (09:24→20:45)
[2020-01-14] MEDS: aspirin 81mg tab.chew PO SCH (09:24)
[2020-01-14] MEDS: cefepime 2g/NS 100ml ADVANTAGE 100 ML IV SCH (09:25)
[2020-01-14] MEDS: docusate sodium 100mg/10ml UD cup OGT SCH ×2 (09:25→20:45)
[2020-01-14] MEDS: heparin, porcine 5000 units/ml vial SQ SCH ×2 (09:26→20:46)
--- NOTE | 2020-01-14 18:04 | NUR ---
Report given to CAROL Pollard
--- NOTE | 2020-01-14 18:30 | NUR ---
Patient in room CICU 2008. I have received report from CAROL Mcdaniel and had the opportunity to ask questions and assume patient care.
[2020-01-14] MEDS: insulin glargine (Lantus) pen - multi-dose SQ SCH (21:14)
[2020-01-14 22:54] LABS: HEMOGLOBIN 7.6 g/dl (12.0-16.0); MEAN CORPUSCULAR HEMOGLOBIN 29.3 PG (27.0-31.0); MEAN CORPUSCULAR VOLUME 88.8 FL (78-98); MEAN PLATELET VOLUME 9.9 FL (7.4-10.4); PLATELET COUNT 141 X10'3 (140-440); RED BLOOD COUNT 2.59 X10'6 (4.20-5.60); RED CELL DISTRIBUTION WIDTH 17.2 % (11.5-14.5); WHITE BLOOD COUNT 5.7 X10'3 (4.5-11.0)
--- NOTE | 2020-01-14 23:35 | NUR ---
Lit Mcclelland BOTTLE PACKER updated on patient condition, patients HR dropped into the 40's with blood pressure of 79/33. BOTTLE PACKER ordered dopamine to be started at 3mcg. Will start and continue monitoring. BOTTLE PACKER also updated on patient's hematoma that has become larger in the last 24 hours, stretching across her abdomen. Hemogram showed small drop in hgb, 7.6 from 7.9. Another hemogram ordered for 0800, on top of the 0300 CBC, to continue monitoring. If patient requires blood, he suggest that it be given with dialysis as patient is to receive dialysis tomorrow. Patient's hematoma has been marked and dated to monitor the spread. will continue monitoring.
[2020-01-14] MEDS ORDERED: DOPamine 400mg/D5W 250ml 250 ML IV ONE (23:37)
[2020-01-14] MEDS: DOPamine 400mg/D5W 250ml 250 ML IV SCH (23:46)
[2020-01-15] VITALS (23 sets, daily range): BP systolic 95–143; BP diastolic 39–56
[2020-01-15] MEDS: mineral oil/petrolatum ophthal oint EACHEYE SCH ×4 (02:06→19:47)
[2020-01-15] MEDS: insulin regular, human U-100 3ml vial - multi-dose SQ SCH ×4 (02:09→20:05)
[2020-01-15 02:25] LABS: BASOPHILS % (AUTO) 0.1 % (0-1); EOSINOPHILS % (AUTO) 0.4 % (0-6); HEMATOCRIT 24.6 % (35.0-45.0); HEMOGLOBIN 8.2 g/dl (12.0-16.0); LYMPHOCYTES # (AUTO) 0.4 X10'3 (1.1-4.8); LYMPHOCYTES % (AUTO) 6.5 % (21-51); MEAN CORPUSCULAR HEMOGLOBIN 29.4 PG (27.0-31.0); MEAN CORPUSCULAR HGB CONC 33.2 g/dL (33.0-36.5); MEAN CORPUSCULAR VOLUME 88.5 FL (78-98); MEAN PLATELET VOLUME 9.8 FL (7.4-10.4); MONOCYTES # (AUTO) 0.8 X10'3 (0-0.9); MONOCYTES % (AUTO) 12.7 % (2-12); NEUTROPHILS % (AUTO) 80.3 % (42-75); PLATELET COUNT 150 X10'3 (140-440); RED BLOOD COUNT 2.78 X10'6 (4.20-5.60); RED CELL DISTRIBUTION WIDTH 17.2 % (11.5-14.5); WHITE BLOOD COUNT 6.3 X10'3 (4.5-11.0)
[2020-01-15 02:41] LABS: ALANINE AMINOTRANSFERASE 20 U/L (12-78); ALBUMIN 1.3 G/DL (3.4-5.0); ALBUMIN/GLOBULIN RATIO 0.3 (1.1-1.5); ALKALINE PHOSPHATASE 54 IU/L (46-116); ANION GAP 10 (8-16); ASPARTATE AMINO TRANSFERASE 55 U/L (10-37); BILIRUBIN,TOTAL 0.6 MG/DL (0.1-1.0); BLOOD UREA NITROGEN 76 MG/DL (7-18); BUN/CREATININE RATIO 19.4 (6.6-38.0); CHLORIDE 100 MMOL/L (99-107); CREATININE 3.92 MG/DL (0.40-0.90); GLUCOSE 160 MG/DL (70-104); POTASSIUM 4.3 MMOL/L (3.5-5.1); SODIUM 134 MMOL/L (135-145); TOTAL CARBON DIOXIDE 23.8 MMOL/L (24-32); TOTAL PROTEIN 5.2 G/DL (6.4-8.2); eGFR 11 ML/MIN
[2020-01-15] MEDS: ipratropium/albuterol 3ml nebule NEB SCH ×6 (03:24→23:24)
[2020-01-15 05:31] LABS: ABG BASE EXCESS -2.5 mmol/L (-2.0-2.0); ABG HCO3 20.9 mmol/L (22.0-26.0); ABG OXYGEN SATURATION 93.8 % (94-97); ABG PCO2 (T) 30.2 mmHg (32.0-45.0); ABG PO2 (T) 66.4 mmHg (75.0-100.0); ALLEN'S TEST POSITIVE; FCOHb 0.1 % (0.0-3.9); FO2Hb 93.7 % (94-97); PATIENT TEMPERATURE 36.7; PEEP 5 cm H2O; TOTAL HEMOGLOBIN 8.8 G/dl (12.0-16.0)
--- NOTE | 2020-01-15 06:23 | NUR ---
Problems reprioritized. Patient report given, questions answered & plan of care reviewed with CAROL Duvall.
[2020-01-15] MEDS: heparin, porcine 5000 units/ml vial SQ SCH ×2 (08:00→19:59)
[2020-01-15] MEDS: K and/or MAG REPLACEMENT MC SCH ×2 (08:00→19:57)
[2020-01-15] MEDS: docusate sodium 100mg/10ml UD cup OGT SCH ×2 (08:59→19:46)
[2020-01-15] MEDS: lactobacillus rhamnosus 10,000 MMU CELLS/CAPSULE PO SCH ×2 (08:59→19:47)
[2020-01-15] MEDS: ferrous sulfate 325mg tablet PO SCH (09:00)
[2020-01-15] MEDS: isosorbide mononitrate 30mg tab.SR.24H PO SCH (09:00)
[2020-01-15] MEDS: aspirin 81mg tab.chew PO SCH (09:00)
[2020-01-15] MEDS: amLODIPine 5mg tablet PO SCH (09:00)
[2020-01-15] MEDS: carVEDilol 12.5mg tablet PO SCH ×2 (09:00→19:46)
[2020-01-15] MEDS: levoTHYROXINE 75mcg tablet PO SCH (09:03)
[2020-01-15] MEDS ORDERED: heparin 1,000unit/ml 10ml vial 10 ML IV ONE (09:34)
[2020-01-15] MEDS ORDERED: normal saline 1000ml 250 ML IV PRN (09:34)
[2020-01-15] MEDS ORDERED: heparin 1,000 units/ml 10ml inj HE ONE ×2 (09:40)
--- NOTE | 2020-01-15 11:44 | NUR ---
Reassessment: Pt still intubated. Receiving HD. No sedation per RN. Pt with severe 4+ pitting edema to BLE, BUE, generalized anasarca and weeping per bedside RN. WOC following patient for unstageable necrotic sacral pressure ulcer. Recommend to add Julio César powder twice daily to provide additional arginine/glutamine/beta-HMB to support wound healing needs. Can be provided with minimal water flush. Needs to be mixed with 120 ml water with an additional water flush of 30 ml before and after administration to prevent tube clogging. Will discuss above with Shearing Shed Worker. Patient's sodium is low at 134. Rec: 1. OGTF using Vital High Protein at 70ml/hr goal; to provide 1680ml fluid, 1680 kcals, 1411ml free water, and 147g protein. 2. Recommend to provide Julio César packet twice daily to support wound healing needs. Recommend to provide with 120ml free water and 30ml water flush before/after administration to prevent tube clogging. 3. PALB Q /; daily wts 4. routine bowel care 5. weight per rx 6. when extubated advance diet as medically indicated to renal Addendum: 01/15/20 at [address] Amended: Links added.
[2020-01-15 12:10] LABS: HEMATOCRIT 22.6 % (35.0-45.0); HEMOGLOBIN 7.5 g/dl (12.0-16.0); MEAN CORPUSCULAR HEMOGLOBIN 29.4 PG (27.0-31.0); MEAN CORPUSCULAR VOLUME 89.1 FL (78-98); MEAN PLATELET VOLUME 9.5 FL (7.4-10.4); PLATELET COUNT 137 X10'3 (140-440); RED BLOOD COUNT 2.53 X10'6 (4.20-5.60); WHITE BLOOD COUNT 4.8 X10'3 (4.5-11.0)
[2020-01-15] MEDS: DOPamine 400mg/D5W 250ml 250 ML IV SCH (16:17)
--- NOTE | 2020-01-15 16:30 | NUR ---
Patient weaned off Dopamine, vss.
--- NOTE | 2020-01-15 17:00 | NUR ---
To CT scan with RN and RT with no difficulties, awaiting report
--- NOTE | 2020-01-15 18:33 | NUR ---
Patient in room CICU 2008. I have received report from CAROL montero and had the opportunity to ask questions and assume patient care.
[2020-01-15] MEDS: famotidine 10mg tablet PO SCH (19:47)
[2020-01-15] MEDS: ARGININE/GLUTAMINE/CALCIUM BMB (JUVEN 19.3GM PKT) 1 EACH POWD.PACK PO SCH (20:00)
[2020-01-15] MEDS: insulin glargine (Lantus) pen - multi-dose SQ SCH (20:07)
[2020-01-16] VITALS (24 sets, daily range): BP systolic 104–150; BP diastolic 39–54
[2020-01-16] MEDS: mineral oil/petrolatum ophthal oint EACHEYE SCH ×4 (02:11→20:25)
[2020-01-16] MEDS: insulin regular, human U-100 3ml vial - multi-dose SQ SCH ×4 (02:13→20:32)
[2020-01-16 02:59] LABS: BASOPHILS % (AUTO) 0.1 % (0-1); EOSINOPHILS % (AUTO) 0.3 % (0-6); HEMATOCRIT 23.3 % (35.0-45.0); HEMOGLOBIN 7.7 g/dl (12.0-16.0); LYMPHOCYTES # (AUTO) 0.4 X10'3 (1.1-4.8); LYMPHOCYTES % (AUTO) 7.5 % (21-51); MEAN CORPUSCULAR HEMOGLOBIN 29.7 PG (27.0-31.0); MEAN CORPUSCULAR VOLUME 90.1 FL (78-98); MEAN PLATELET VOLUME 9.8 FL (7.4-10.4); MONOCYTES # (AUTO) 0.9 X10'3 (0-0.9); NEUTROPHILS # (AUTO) 4.1 X10'3 (1.8-7.7); NEUTROPHILS % (AUTO) 75.1 % (42-75); PLATELET COUNT 128 X10'3 (140-440); RED BLOOD COUNT 2.58 X10'6 (4.20-5.60); RED CELL DISTRIBUTION WIDTH 17.3 % (11.5-14.5); WHITE BLOOD COUNT 5.4 X10'3 (4.5-11.0)
[2020-01-16 03:15] LABS: ALANINE AMINOTRANSFERASE 23 U/L (12-78); ALBUMIN 1.2 G/DL (3.4-5.0); ALBUMIN/GLOBULIN RATIO 0.3 (1.1-1.5); ALKALINE PHOSPHATASE 54 IU/L (46-116); ANION GAP 9 (8-16); ASPARTATE AMINO TRANSFERASE 59 U/L (10-37); BILIRUBIN,TOTAL 0.7 MG/DL (0.1-1.0); BLOOD UREA NITROGEN 103 MG/DL (7-18); BUN/CREATININE RATIO 25.2 (6.6-38.0); CALCIUM 6.8 MG/DL (8.5-10.1); CHLORIDE 99 MMOL/L (99-107); CREATININE 4.09 MG/DL (0.40-0.90); GLUCOSE 118 MG/DL (70-104); MAGNESIUM 2.1 MG/DL (1.5-2.4); PHOSPHORUS 4.9 MG/DL (2.3-4.5); POTASSIUM 4.9 MMOL/L (3.5-5.1); PREALBUMIN 12.9 MG/DL (19-36); SODIUM 133 MMOL/L (135-145); TOTAL CARBON DIOXIDE 24.6 MMOL/L (24-32); eGFR 10 ML/MIN
[2020-01-16 03:25] LABS: TOTAL CELLS COUNTED 100
[2020-01-16 03:26] LABS: ANISOCYTOSIS 1+; PLATELET ESTIMATE DECREASED; POLYCHROMASIA FEW
[2020-01-16] MEDS: ipratropium/albuterol 3ml nebule NEB SCH ×6 (04:05→23:53)
[2020-01-16 05:06] LABS: ABG BASE EXCESS -3.1 mmol/L (-2.0-2.0); ABG HCO3 20.7 mmol/L (22.0-26.0); ABG OXYGEN SATURATION 91.8 % (94-97); ABG PCO2 (T) 30.9 mmHg (32.0-45.0); ALLEN'S TEST POSITIVE; FCOHb 0.4 % (0.0-3.9); FMetHb 0.3 % (0.0-1.5); FO2Hb 91.2 % (94-97); PATIENT TEMPERATURE 36.2; PEEP 5 cm H2O; TOTAL HEMOGLOBIN 8.3 G/dl (12.0-16.0)
--- NOTE | 2020-01-16 06:29 | NUR ---
Problems reprioritized. Patient report given, questions answered & plan of care reviewed with CAROL Martínez.
--- NOTE | 2020-01-16 06:30 | NUR ---
Patient in room CICU 2009. I have received report from Latrice MEDINA and had the opportunity to ask questions and assume patient care.
[2020-01-16] MEDS: lactobacillus rhamnosus 10,000 MMU CELLS/CAPSULE PO SCH (07:27)
[2020-01-16] MEDS: aspirin 81mg tab.chew PO SCH (07:27)
[2020-01-16] MEDS: docusate sodium 100mg/10ml UD cup OGT SCH ×2 (07:27→20:23)
[2020-01-16] MEDS: ferrous sulfate 325mg tablet PO SCH (07:31)
[2020-01-16] MEDS: levoTHYROXINE 75mcg tablet PO SCH (07:32)
[2020-01-16] MEDS: famotidine 10mg tablet PO SCH (07:32)
[2020-01-16] MEDS: isosorbide mononitrate 30mg tab.SR.24H PO SCH (07:34)
[2020-01-16] MEDS: carVEDilol 12.5mg tablet PO SCH (07:34)
[2020-01-16] MEDS ORDERED: digoxin 250mcg/ml 2ml ampule IV SCH (08:00)
[2020-01-16] MEDS: K and/or MAG REPLACEMENT MC SCH ×2 (08:00→20:00)
[2020-01-16] MEDS: heparin, porcine 5000 units/ml vial SQ SCH (08:00)
[2020-01-16] MEDS: DOPamine 400mg/D5W 250ml 250 ML IV SCH (08:59)
[2020-01-16] MEDS ORDERED: normal saline 1000ml 250 ML IV PRN (09:27)
[2020-01-16] MEDS ORDERED: heparin 1,000unit/ml 10ml vial 10 ML IV ONE (09:27)
[2020-01-16] MEDS ORDERED: heparin 1,000 units/ml 10ml inj HE ONE ×2 (09:35)
[2020-01-16] MEDS: ARGININE/GLUTAMINE/CALCIUM BMB (JUVEN 19.3GM PKT) 1 EACH POWD.PACK PO SCH (10:33)
[2020-01-16] MEDS: amLODIPine 5mg tablet PO SCH (10:33)
--- NOTE | 2020-01-16 10:35 | NUR ---
Reassessment: Pt still intubated. Receiving HD. No sedation per RN. Pt with severe 4+ pitting edema to BLE, BUE, generalized anasarca and weeping per bedside RN. WOC following patient for unstageable necrotic sacral pressure ulcer. Recommend to add Julio César powder twice daily to provide additional arginine/glutamine/beta-HMB to support wound healing needs. Can be provided with minimal water flush. Needs to be mixed with 120 ml water with an additional water flush of 30 ml before and after administration to prevent tube clogging. discussed above with Auto Accessories Installer and bedside RN, noted that order for Julio César verified last night. Pt will begin to receive today. Patient's sodium is low at 133, MD is aware. Rec: 1. OGTF using Vital High Protein at 70ml/hr goal; to provide 1680ml fluid, 1680 kcals, 1411ml free water, and 147g protein. 2. Recommend to provide Julio César packet twice daily to support wound healing needs. Recommend to provide with 120ml free water and 30ml water flush before/after administration to prevent tube clogging. 3. PALB Q /; daily wts 4. routine bowel care 5. weight per rx 6. when extubated advance diet as medically indicated to renal Addendum: 01/16/20 at [address] Amended: Links added.
[2020-01-16] MEDS ORDERED: acetaminophen 325mg tablet OGT PRN ×2 (11:00→11:01)
[2020-01-16] MEDS ORDERED: aspirin 81mg tab.chew OGT SCH (11:02)
[2020-01-16] MEDS ORDERED: dextrose ORAL solution 15 GM/59 ML bottle OGT PRN ×2 (11:02→11:03)
[2020-01-16] MEDS ORDERED: magnesium hydroxide 30ml (MOM) UD suspension OGT PRN (11:04)
[2020-01-16] MEDS: nitroGLYCERIN 1gm ointment UD TP SCH ×2 (15:09→20:24)
--- NOTE | 2020-01-16 16:00 | NUR ---
Patient is having pink coloration to thick yellow mucus present in ETT suctioning. Patient is also starting to weep on vaginal outer folds a serous fluids. Additionally, tube feeding is now a brick color as well. Charge nurse Brianna notified who discussed with Dr. Lopez. Will continue to monitor.
--- NOTE | 2020-01-16 17:30 | NUR ---
Dressings to lower legs and right forearm changed per order. Will continue to monitor.
--- NOTE | 2020-01-16 18:27 | NUR ---
Problems reprioritized. Patient report given, questions answered & plan of care reviewed with Dasia MEDINA.
--- NOTE | 2020-01-16 18:30 | NUR ---
Patient in room CICU 2008. I have received report from Ro MEDINA and had the opportunity to ask questions and assume patient care.
--- NOTE | 2020-01-16 19:00 | NUR ---
Patient assessment done. No change in patient status at this time. Patient is not following commands. Will continue to monitor closely.
[2020-01-16] MEDS: lactobacillus rhamnosus 10,000 MMU CELLS/CAPSULE OGT SCH (20:24)
[2020-01-16] MEDS: carVEDilol 12.5mg tablet OGT SCH (20:24)
[2020-01-16] MEDS: famotidine 10mg tablet OGT SCH (20:24)
[2020-01-16] MEDS: ARGININE/GLUTAMINE/CALCIUM BMB (JUVEN 19.3GM PKT) 1 EACH POWD.PACK OGT SCH (20:25)
[2020-01-16] MEDS: insulin glargine (Lantus) pen - multi-dose SQ SCH (20:33)
[2020-01-17] VITALS (24 sets, daily range): BP systolic 94–151; BP diastolic 40–81
--- NOTE | 2020-01-17 | NUR ---
Central line D/Cd per physician order. Occlusive dressing applied. Will continue to monitor closely.
[2020-01-17] MEDS: mineral oil/petrolatum ophthal oint EACHEYE SCH ×4 (02:08→20:12)
[2020-01-17] MEDS: nitroGLYCERIN 1gm ointment UD TP SCH ×4 (02:08→20:11)
[2020-01-17] MEDS: insulin regular, human U-100 3ml vial - multi-dose SQ SCH ×4 (02:09→20:13)
[2020-01-17 02:20] LABS: BASOPHILS % (AUTO) 0.3 % (0-1); EOSINOPHILS % (AUTO) 0.1 % (0-6); HEMATOCRIT 22.7 % (35.0-45.0); HEMOGLOBIN 7.3 g/dl (12.0-16.0); LYMPHOCYTES # (AUTO) 0.5 X10'3 (1.1-4.8); MEAN CORPUSCULAR HEMOGLOBIN 28.9 PG (27.0-31.0); MEAN CORPUSCULAR HGB CONC 32.3 g/dL (33.0-36.5); MEAN CORPUSCULAR VOLUME 89.4 FL (78-98); MEAN PLATELET VOLUME 9.9 FL (7.4-10.4); MONOCYTES # (AUTO) 1.2 X10'3 (0-0.9); MONOCYTES % (AUTO) 20.3 % (2-12); NEUTROPHILS % (AUTO) 70.3 % (42-75); PLATELET COUNT 139 X10'3 (140-440); RED BLOOD COUNT 2.54 X10'6 (4.20-5.60); RED CELL DISTRIBUTION WIDTH 17.3 % (11.5-14.5); WHITE BLOOD COUNT 5.7 X10'3 (4.5-11.0)
[2020-01-17 02:43] LABS: ALANINE AMINOTRANSFERASE 28 U/L (12-78); ALBUMIN 1.2 G/DL (3.4-5.0); ALBUMIN/GLOBULIN RATIO 0.3 (1.1-1.5); ALKALINE PHOSPHATASE 55 IU/L (46-116); ANION GAP 5 (8-16); ASPARTATE AMINO TRANSFERASE 59 U/L (10-37); BILIRUBIN,TOTAL 0.5 MG/DL (0.1-1.0); BLOOD UREA NITROGEN 83 MG/DL (7-18); BUN/CREATININE RATIO 28.6 (6.6-38.0); CALCIUM 7.1 MG/DL (8.5-10.1); CHLORIDE 100 MMOL/L (99-107); GLUCOSE 117 MG/DL (70-104); PHOSPHORUS 3.6 MG/DL (2.3-4.5); POTASSIUM 4.4 MMOL/L (3.5-5.1); SODIUM 133 MMOL/L (135-145); TOTAL CARBON DIOXIDE 27.9 MMOL/L (24-32); eGFR 15 ML/MIN
[2020-01-17 02:47] LABS: % IRON SATURATION 9 % (11-46); ANISOCYTOSIS 1+; HYPOCHROMASIA 1+; IRON 24 UG/DL (49-151); PLATELET ESTIMATE DECREASED; POLYCHROMASIA FEW; TOTAL CELLS COUNTED 100; TOTAL IRON BINDING CAPACITY 272 UG/DL (259-388)
[2020-01-17] MEDS: ipratropium/albuterol 3ml nebule NEB SCH ×6 (03:04→23:00)
[2020-01-17 03:31] LABS: ABG BASE EXCESS 0.5 mmol/L (-2.0-2.0); ABG HCO3 23.6 mmol/L (22.0-26.0); ABG OXYGEN SATURATION 94.8 % (94-97); ABG PCO2 (T) 30.7 mmHg (32.0-45.0); ABG PO2 (T) 68.5 mmHg (75.0-100.0); ALLEN'S TEST POSITIVE; FCOHb 0.3 % (0.0-3.9); FMetHb 0.3 % (0.0-1.5); FO2Hb 94.2 % (94-97); PATIENT TEMPERATURE 36.1; PEEP 5 cm H2O; TIDAL VOLUME 323 mL; TOTAL HEMOGLOBIN 8.5 G/dl (12.0-16.0)
--- NOTE | 2020-01-17 06:30 | NUR ---
Patient in room ICU 2038. I have received report from CAROL Forman and had the opportunity to ask questions and assume patient care.
[2020-01-17] MEDS: docusate sodium 100mg/10ml UD cup OGT SCH ×2 (07:31→20:11)
[2020-01-17] MEDS: levoTHYROXINE 75mcg tablet OGT SCH (07:31)
[2020-01-17] MEDS: famotidine 10mg tablet OGT SCH ×2 (07:31→20:11)
[2020-01-17] MEDS: ferrous sulfate 325mg tablet PO SCH (07:31)
[2020-01-17] MEDS: amLODIPine 5mg tablet OGT SCH (07:32)
[2020-01-17] MEDS: ARGININE/GLUTAMINE/CALCIUM BMB (JUVEN 19.3GM PKT) 1 EACH POWD.PACK OGT SCH ×2 (07:32→20:12)
[2020-01-17] MEDS: carVEDilol 12.5mg tablet OGT SCH ×2 (07:32→20:11)
[2020-01-17] MEDS: lactobacillus rhamnosus 10,000 MMU CELLS/CAPSULE OGT SCH ×2 (07:32→20:11)
[2020-01-17] MEDS: K and/or MAG REPLACEMENT MC SCH (08:00)
[2020-01-17 11:37] LABS: OCCULT BLOOD STOOL POSITIVE (Neg)
[2020-01-17] MEDS: sodium ferric gluc complex inj 125 MG in normal saline 100ml IV soln 90 ML IV SCH (11:37)
[2020-01-17] MEDS: pantoprazole 40 MG vial IV SCH ×2 (12:14→20:11)
--- NOTE | 2020-01-17 18:12 | NUR ---
Problems reprioritized. Patient report given, questions answered & plan of care reviewed with CAROL Forman.
--- NOTE | 2020-01-17 18:23 | NUR ---
Patient in room ICU 2038. I have received report from Anna MEDINA and had the opportunity to ask questions and assume patient care.
--- NOTE | 2020-01-17 20:00 | NUR ---
Upon Physical assessment bruising noted around the neck area. Will continue to monitor closely.
[2020-01-17] MEDS: insulin glargine (Lantus) pen - multi-dose SQ SCH (20:15)
--- NOTE | 2020-01-17 21:00 | NUR ---
S/O Michael called, propped phone up to patients left ear so that Michael could speak with patient while patient is intubated. Will continue to monitor patient closely.
[2020-01-18] VITALS (28 sets, daily range): BP systolic 88–151; BP diastolic 34–63
[2020-01-18] MEDS: nitroGLYCERIN 1gm ointment UD TP SCH ×4 (02:18→19:38)
[2020-01-18] MEDS: mineral oil/petrolatum ophthal oint EACHEYE SCH ×4 (02:18→19:52)
[2020-01-18] MEDS: insulin regular, human U-100 3ml vial - multi-dose SQ SCH ×4 (02:20→19:56)
[2020-01-18 02:55] LABS: BASOPHILS % (AUTO) 0 % (0-1); EOSINOPHILS % (AUTO) 0.3 % (0-6); LYMPHOCYTES # (AUTO) 0.8 X10'3 (1.1-4.8); LYMPHOCYTES % (AUTO) 11.3 % (21-51); MEAN CORPUSCULAR HEMOGLOBIN 29.2 PG (27.0-31.0); MEAN CORPUSCULAR HGB CONC 32.8 g/dL (33.0-36.5); MEAN CORPUSCULAR VOLUME 89.1 FL (78-98); MEAN PLATELET VOLUME 10.4 FL (7.4-10.4); MONOCYTES % (AUTO) 15.1 % (2-12); NEUTROPHILS % (AUTO) 73.3 % (42-75); PLATELET COUNT 145 X10'3 (140-440); RED BLOOD COUNT 2.39 X10'6 (4.20-5.60); RED CELL DISTRIBUTION WIDTH 17.5 % (11.5-14.5); WHITE BLOOD COUNT 6.9 X10'3 (4.5-11.0)
[2020-01-18] MEDS: ipratropium/albuterol 3ml nebule NEB SCH ×5 (02:57→23:24)
[2020-01-18 02:58] LABS: HEMATOCRIT 21.3 % (35.0-45.0)
[2020-01-18 03:08] LABS: PARTIAL THROMBOPLASTIN TIME 41 SECONDS (22-32)
[2020-01-18 03:10] LABS: ALANINE AMINOTRANSFERASE 31 U/L (12-78); ALBUMIN 1.1 G/DL (3.4-5.0); ALBUMIN/GLOBULIN RATIO 0.3 (1.1-1.5); ALKALINE PHOSPHATASE 56 IU/L (46-116); ANION GAP 6 (8-16); ASPARTATE AMINO TRANSFERASE 58 U/L (10-37); BILIRUBIN,TOTAL 0.5 MG/DL (0.1-1.0); BLOOD UREA NITROGEN 125 MG/DL (7-18); BUN/CREATININE RATIO 36.9 (6.6-38.0); CALCIUM 7.2 MG/DL (8.5-10.1); CHLORIDE 100 MMOL/L (99-107); CREATININE 3.39 MG/DL (0.40-0.90); GLUCOSE 114 MG/DL (70-104); PHOSPHORUS 3.9 MG/DL (2.3-4.5); POTASSIUM 5.3 MMOL/L (3.5-5.1); PREALBUMIN 13.9 MG/DL (19-36); SODIUM 132 MMOL/L (135-145); TOTAL CARBON DIOXIDE 26.2 MMOL/L (24-32); TOTAL PROTEIN 4.8 G/DL (6.4-8.2); eGFR 13 ML/MIN
--- NOTE | 2020-01-18 03:30 | NUR ---
Critical HGB 7.0 and HCT 21.3. Notified Lit Mcclelland NP. New orders received.
[2020-01-18 05:20] LABS: ABG BASE EXCESS -2.8 mmol/L (-2.0-2.0); ABG HCO3 21.8 mmol/L (22.0-26.0); ABG OXYGEN SATURATION 89.9 % (94-97); ABG PCO2 (T) 35.4 mmHg (32.0-45.0); ALLEN'S TEST POSITIVE; FCOHb 0.3 % (0.0-3.9); FMetHb 0.3 % (0.0-1.5); FO2Hb 89.4 % (94-97); PATIENT TEMPERATURE 36.3; PEEP 5 cm H2O; TIDAL VOLUME 489 mL; TOTAL HEMOGLOBIN 8.1 G/dl (12.0-16.0)
--- NOTE | 2020-01-18 06:09 | NUR ---
Problems reprioritized. Patient report given, questions answered & plan of care reviewed with Anna MEDINA.
[2020-01-18] MEDS: famotidine 10mg tablet OGT SCH (07:17)
[2020-01-18] MEDS: pantoprazole 40 MG vial IV SCH ×2 (07:17→19:35)
[2020-01-18] MEDS: docusate sodium 100mg/10ml UD cup OGT SCH ×2 (07:17→20:50)
[2020-01-18] MEDS: levoTHYROXINE 75mcg tablet OGT SCH (07:18)
[2020-01-18] MEDS: carVEDilol 12.5mg tablet OGT SCH ×2 (07:18→19:35)
[2020-01-18] MEDS: amLODIPine 5mg tablet OGT SCH (07:18)
[2020-01-18] MEDS: lactobacillus rhamnosus 10,000 MMU CELLS/CAPSULE OGT SCH ×2 (07:18→19:35)
[2020-01-18] MEDS: ARGININE/GLUTAMINE/CALCIUM BMB (JUVEN 19.3GM PKT) 1 EACH POWD.PACK OGT SCH ×2 (08:00→20:50)
[2020-01-18] MEDS: sodium ferric gluc complex inj 125 MG in normal saline 100ml IV soln 90 ML IV SCH (08:25)
[2020-01-18] MEDS ORDERED: normal saline 1000ml 250 ML IV PRN (09:50)
[2020-01-18] MEDS ORDERED: normal saline 1000ml 100 ML IV PRN (09:50)
[2020-01-18] MEDS ORDERED: heparin 1,000 units/ml 10ml inj HE ONE ×2 (09:55)
[2020-01-18 18:32] LABS: HEMATOCRIT 26.1 % (35.0-45.0); HEMOGLOBIN 8.7 g/dl (12.0-16.0); MEAN CORPUSCULAR HEMOGLOBIN 29.2 PG (27.0-31.0); MEAN CORPUSCULAR HGB CONC 33.3 g/dL (33.0-36.5); MEAN CORPUSCULAR VOLUME 87.6 FL (78-98); MEAN PLATELET VOLUME 9.9 FL (7.4-10.4); PLATELET COUNT 164 X10'3 (140-440); RED BLOOD COUNT 2.98 X10'6 (4.20-5.60); RED CELL DISTRIBUTION WIDTH 16.7 % (11.5-14.5)
[2020-01-18] MEDS: insulin glargine (Lantus) pen - multi-dose SQ SCH (19:58)
[2020-01-19] VITALS (25 sets, daily range): BP systolic 93–163; BP diastolic 43–66
[2020-01-19] MEDS: mineral oil/petrolatum ophthal oint EACHEYE SCH ×4 (02:21→19:32)
[2020-01-19] MEDS: nitroGLYCERIN 1gm ointment UD TP SCH ×4 (02:21→19:35)
[2020-01-19] MEDS: insulin regular, human U-100 3ml vial - multi-dose SQ SCH ×3 (02:24→20:14)
[2020-01-19 02:52] LABS: BASOPHILS % (AUTO) 0.1 % (0-1); EOSINOPHILS % (AUTO) 0.2 % (0-6); HEMATOCRIT 26.6 % (35.0-45.0); LYMPHOCYTES # (AUTO) 0.8 X10'3 (1.1-4.8); LYMPHOCYTES % (AUTO) 8.5 % (21-51); MEAN CORPUSCULAR HGB CONC 33.9 g/dL (33.0-36.5); MEAN CORPUSCULAR VOLUME 88.5 FL (78-98); MEAN PLATELET VOLUME 10.3 FL (7.4-10.4); MONOCYTES # (AUTO) 1.2 X10'3 (0-0.9); MONOCYTES % (AUTO) 13.1 % (2-12); NEUTROPHILS # (AUTO) 6.9 X10'3 (1.8-7.7); NEUTROPHILS % (AUTO) 78.1 % (42-75); PLATELET COUNT 174 X10'3 (140-440); RED CELL DISTRIBUTION WIDTH 16.6 % (11.5-14.5); WHITE BLOOD COUNT 8.9 X10'3 (4.5-11.0)
[2020-01-19 03:11] LABS: ALANINE AMINOTRANSFERASE 44 U/L (12-78); ALBUMIN 1.4 G/DL (3.4-5.0); ALBUMIN/GLOBULIN RATIO 0.3 (1.1-1.5); ALKALINE PHOSPHATASE 74 IU/L (46-116); ANION GAP 7 (8-16); ASPARTATE AMINO TRANSFERASE 73 U/L (10-37); BILIRUBIN,TOTAL 0.6 MG/DL (0.1-1.0); BLOOD UREA NITROGEN 98 MG/DL (7-18); BUN/CREATININE RATIO 38.6 (6.6-38.0); CALCIUM 7.5 MG/DL (8.5-10.1); CHLORIDE 100 MMOL/L (99-107); CREATININE 2.54 MG/DL (0.40-0.90); GLUCOSE 96 MG/DL (70-104); POTASSIUM 4.3 MMOL/L (3.5-5.1); SODIUM 134 MMOL/L (135-145); TOTAL CARBON DIOXIDE 26.6 MMOL/L (24-32); TOTAL PROTEIN 5.5 G/DL (6.4-8.2); eGFR 18 ML/MIN
[2020-01-19] MEDS: ipratropium/albuterol 3ml nebule NEB SCH ×6 (03:19→23:25)
[2020-01-19 04:45] LABS: ABG BASE EXCESS -0.2 mmol/L (-2.0-2.0); ABG HCO3 22.7 mmol/L (22.0-26.0); ABG OXYGEN SATURATION 94.5 % (94-97); ABG PCO2 (T) 29.5 mmHg (32.0-45.0); ABG PO2 (T) 67.9 mmHg (75.0-100.0); ALLEN'S TEST POSITIVE; FCOHb 0.3 % (0.0-3.9); FO2Hb 94.2 % (94-97); PATIENT TEMPERATURE 36.2; PEEP 5 cm H2O; TOTAL HEMOGLOBIN 8.7 G/dl (12.0-16.0)
--- NOTE | 2020-01-19 06:15 | NUR ---
Patient in room ICU 2038. I have received report from Magdaleno MEDINA and assumed patient care.
[2020-01-19] MEDS: pantoprazole 40 MG vial IV SCH ×2 (07:17→19:47)
[2020-01-19] MEDS: ARGININE/GLUTAMINE/CALCIUM BMB (JUVEN 19.3GM PKT) 1 EACH POWD.PACK OGT SCH ×2 (07:17→20:00)
[2020-01-19] MEDS: amLODIPine 5mg tablet OGT SCH (07:18)
[2020-01-19] MEDS: levoTHYROXINE 75mcg tablet OGT SCH (07:18)
[2020-01-19] MEDS: carVEDilol 12.5mg tablet OGT SCH ×2 (07:18→19:31)
[2020-01-19] MEDS: lactobacillus rhamnosus 10,000 MMU CELLS/CAPSULE OGT SCH ×2 (07:18→19:28)
[2020-01-19] MEDS: docusate sodium 100mg/10ml UD cup OGT SCH ×2 (07:44→19:32)
[2020-01-19] MEDS: sodium ferric gluc complex inj 125 MG in normal saline 100ml IV soln 90 ML IV SCH (08:59)
[2020-01-19] MEDS ORDERED: vancomycin/NS 1 GM ADD-VANTAGE 250 ML IV ONE (10:10)
[2020-01-19] MEDS: cefepime 1GM in D5W 50mL 50 ML IV SCH (10:27)
--- NOTE | 2020-01-19 11:56 | NUR ---
Reassessment: Pt remains intubated and tolerating TF at goal rate with residuals WNL. Pt continues receiving Julio César BID for wound healing needs. Wound improving per RN at critical care rounds. Last WOC note from 01/16 states patient's tailbone has a scabbed area and no wound bed was visible at that time. LBM 01/18 documented as moderate and black however H&H stable per RN at critical care rounds. Will continue to follow closely. Rec: 1. OGTF using Vital High Protein at 70ml/hr goal; to provide 1680 mL total volume, 1680 kcal, 1411 mL water, and 147 g protein. 2. Julio César packet BID to support wound healing needs. To provide with 120 mL free water and 30 mL water flush before and after administration to prevent tube clogging. 3. PALB Q ; daily wts 4. routine bowel care 5. when extubated advance diet as medically indicated to renal Addendum: 01/19/20 at [address] Amended: Links added.
[2020-01-19] MEDS: mineral oil/petrolatum, white cream 113gm jar TP SCH ×2 (15:34→19:49)
[2020-01-19] MEDS ORDERED: vancomycin/NS 1 GM ADD-VANTAGE 250 ML IV PRN (17:55)
--- NOTE | 2020-01-19 18:27 | NUR ---
Patient in room ICU 2038. I have received report and had the opportunity to ask questions and assume patient care.
--- NOTE | 2020-01-19 18:27 | NUR ---
Problems reprioritized. Patient report given, questions answered & plan of care reviewed with Sweta MEDINA.
[2020-01-19] MEDS: HYDROcodone/acetaminophen 5mg/325mg tablet PO PRN ×2 (19:30→23:39)
[2020-01-19] MEDS: insulin glargine (Lantus) pen - multi-dose SQ SCH (20:16)
[2020-01-20] VITALS (24 sets, daily range): BP systolic 102–148; BP diastolic 38–60
[2020-01-20] MEDS: nitroGLYCERIN 1gm ointment UD TP SCH ×5 (02:00→20:42)
[2020-01-20] MEDS: mineral oil/petrolatum ophthal oint EACHEYE SCH ×4 (02:08→20:41)
[2020-01-20] MEDS: insulin regular, human U-100 3ml vial - multi-dose SQ SCH ×4 (02:12→20:47)
[2020-01-20] MEDS: VANCOMYCIN LEVEL IV SCH (03:00)
[2020-01-20 03:01] LABS: ALANINE AMINOTRANSFERASE 44 U/L (12-78); ALBUMIN 1.3 G/DL (3.4-5.0); ALBUMIN/GLOBULIN RATIO 0.3 (1.1-1.5); ALKALINE PHOSPHATASE 73 IU/L (46-116); ANION GAP 11 (8-16); ASPARTATE AMINO TRANSFERASE 67 U/L (10-37); BILIRUBIN,TOTAL 0.7 MG/DL (0.1-1.0); BLOOD UREA NITROGEN 146 MG/DL (7-18); BUN/CREATININE RATIO 47.6 (6.6-38.0); CALCIUM 7.4 MG/DL (8.5-10.1); CHLORIDE 97 MMOL/L (99-107); CREATININE 3.07 MG/DL (0.40-0.90); GLUCOSE 134 MG/DL (70-104); SODIUM 132 MMOL/L (135-145); TOTAL CARBON DIOXIDE 24.1 MMOL/L (24-32); TOTAL PROTEIN 5.3 G/DL (6.4-8.2); VANCOMYCIN,RANDOM 10.6 UG/ML; eGFR 14 ML/MIN
[2020-01-20] MEDS: ipratropium/albuterol 3ml nebule NEB SCH ×6 (03:02→23:05)
[2020-01-20 03:03] LABS: BASOPHILS % (AUTO) 0 % (0-1); EOSINOPHILS % (AUTO) 0 % (0-6); HEMATOCRIT 26.1 % (35.0-45.0); HEMOGLOBIN 8.4 g/dl (12.0-16.0); LYMPHOCYTES # (AUTO) 0.6 X10'3 (1.1-4.8); MEAN CORPUSCULAR HEMOGLOBIN 28.8 PG (27.0-31.0); MEAN CORPUSCULAR HGB CONC 32.3 g/dL (33.0-36.5); MEAN CORPUSCULAR VOLUME 89.1 FL (78-98); MEAN PLATELET VOLUME 10.4 FL (7.4-10.4); MONOCYTES # (AUTO) 0.7 X10'3 (0-0.9); MONOCYTES % (AUTO) 7.2 % (2-12); NEUTROPHILS # (AUTO) 8.5 X10'3 (1.8-7.7); NEUTROPHILS % (AUTO) 86.8 % (42-75); PLATELET COUNT 180 X10'3 (140-440); RED BLOOD COUNT 2.93 X10'6 (4.20-5.60); WHITE BLOOD COUNT 9.8 X10'3 (4.5-11.0)
[2020-01-20 03:20] LABS: ABG BASE EXCESS -2.7 mmol/L (-2.0-2.0); ABG HCO3 21.4 mmol/L (22.0-26.0); ABG OXYGEN SATURATION 95.5 % (94-97); ABG PCO2 (T) 33.6 mmHg (32.0-45.0); ABG PO2 (T) 76.2 mmHg (75.0-100.0); ALLEN'S TEST POSITIVE; FMetHb 0.3 % (0.0-1.5); FO2Hb 95.2 % (94-97); PATIENT TEMPERATURE 36.6; PEEP 5 cm H2O; RESPIRATORY RATE 18 b/min; TIDAL VOLUME 350 mL; TOTAL HEMOGLOBIN 9.3 G/dl (12.0-16.0)
[2020-01-20] MEDS: HYDROcodone/acetaminophen 5mg/325mg tablet PO PRN ×3 (04:45→13:53)
--- NOTE | 2020-01-20 06:09 | NUR ---
Problems reprioritized. Patient report given, questions answered & plan of care reviewed.
--- NOTE | 2020-01-20 06:53 | NUR ---
Patient in room ICU 2038. I have received report from CAROL Sol and had the opportunity to ask questions and assume patient care.
[2020-01-20] MEDS: carVEDilol 12.5mg tablet OGT SCH ×2 (07:58→20:41)
[2020-01-20] MEDS: amLODIPine 5mg tablet OGT SCH (07:58)
[2020-01-20] MEDS: cefepime 1GM in D5W 50mL 50 ML IV SCH (07:58)
[2020-01-20] MEDS: pantoprazole 40 MG vial IV SCH ×2 (07:58→20:41)
[2020-01-20] MEDS: levoTHYROXINE 75mcg tablet OGT SCH (07:58)
[2020-01-20] MEDS: docusate sodium 100mg/10ml UD cup OGT SCH ×2 (07:58→20:41)
[2020-01-20] MEDS: lactobacillus rhamnosus 10,000 MMU CELLS/CAPSULE OGT SCH ×2 (07:58→20:41)
[2020-01-20] MEDS ORDERED: vancomycin/NS 1 GM ADD-VANTAGE 250 ML IV ONE (08:00)
[2020-01-20] MEDS ORDERED: normal saline 1000ml 100 ML IV PRN (08:00)
[2020-01-20] MEDS ORDERED: normal saline 1000ml 250 ML IV PRN (08:00)
[2020-01-20] MEDS ORDERED: heparin 1,000 units/ml 10ml inj HE ONE ×2 (08:00)
[2020-01-20] MEDS: sodium ferric gluc complex inj 125 MG in normal saline 100ml IV soln 90 ML IV SCH (08:14)
[2020-01-20] MEDS: mineral oil/petrolatum, white cream 113gm jar TP SCH ×2 (08:38→20:42)
[2020-01-20] MEDS: ARGININE/GLUTAMINE/CALCIUM BMB (JUVEN 19.3GM PKT) 1 EACH POWD.PACK OGT SCH ×2 (09:48→20:42)
[2020-01-20] MEDS: insulin glargine (Lantus) pen - multi-dose SQ SCH (20:48)
[2020-01-21] VITALS (22 sets, daily range): BP systolic 105–153; BP diastolic 42–62
[2020-01-21] MEDS: mineral oil/petrolatum ophthal oint EACHEYE SCH ×4 (02:46→21:17)
[2020-01-21 03:00] LABS: BASOPHILS % (AUTO) 0 % (0-1); EOSINOPHILS % (AUTO) 0.3 % (0-6); HEMATOCRIT 25.4 % (35.0-45.0); HEMOGLOBIN 8.3 g/dl (12.0-16.0); LYMPHOCYTES # (AUTO) 0.6 X10'3 (1.1-4.8); MEAN CORPUSCULAR HEMOGLOBIN 29.2 PG (27.0-31.0); MEAN CORPUSCULAR HGB CONC 32.8 g/dL (33.0-36.5); MONOCYTES # (AUTO) 0.8 X10'3 (0-0.9); MONOCYTES % (AUTO) 8.4 % (2-12); NEUTROPHILS # (AUTO) 7.8 X10'3 (1.8-7.7); NEUTROPHILS % (AUTO) 84.3 % (42-75); PLATELET COUNT 191 X10'3 (140-440); RED BLOOD COUNT 2.85 X10'6 (4.20-5.60); RED CELL DISTRIBUTION WIDTH 16.7 % (11.5-14.5); WHITE BLOOD COUNT 9.2 X10'3 (4.5-11.0)
[2020-01-21] MEDS: VANCOMYCIN LEVEL IV SCH (03:00)
[2020-01-21] MEDS: ipratropium/albuterol 3ml nebule NEB SCH ×6 (03:24→22:58)
[2020-01-21 03:33] LABS: ALANINE AMINOTRANSFERASE 48 U/L (12-78); ALBUMIN 1.3 G/DL (3.4-5.0); ALBUMIN/GLOBULIN RATIO 0.3 (1.1-1.5); ALKALINE PHOSPHATASE 80 IU/L (46-116); ANION GAP 8 (8-16); ASPARTATE AMINO TRANSFERASE 68 U/L (10-37); BILIRUBIN,TOTAL 0.6 MG/DL (0.1-1.0); BLOOD UREA NITROGEN 117 MG/DL (7-18); BUN/CREATININE RATIO 48.5 (6.6-38.0); CALCIUM 7.3 MG/DL (8.5-10.1); CHLORIDE 99 MMOL/L (99-107); CREATININE 2.41 MG/DL (0.40-0.90); GLUCOSE 71 MG/DL (70-104); MAGNESIUM 1.9 MG/DL (1.5-2.4); POTASSIUM 4.7 MMOL/L (3.5-5.1); SODIUM 133 MMOL/L (135-145); TOTAL PROTEIN 5.1 G/DL (6.4-8.2); VANCOMYCIN,RANDOM 15.2 UG/ML; eGFR 19 ML/MIN
[2020-01-21 03:36] LABS: ABG BASE EXCESS -3.9 mmol/L (-2.0-2.0); ABG OXYGEN SATURATION 93.4 % (94-97); ABG PCO2 (T) 30.7 mmHg (32.0-45.0); ABG PO2 (T) 66.3 mmHg (75.0-100.0); ALLEN'S TEST POSITIVE; FCOHb 0.1 % (0.0-3.9); FMetHb 0.3 % (0.0-1.5); PATIENT TEMPERATURE 36.1; PEEP 5 cm H2O
[2020-01-21] MEDS: nitroGLYCERIN 1gm ointment UD TP SCH ×4 (03:38→21:16)
[2020-01-21] MEDS: insulin regular, human U-100 3ml vial - multi-dose SQ SCH ×2 (03:41→21:29)
--- NOTE | 2020-01-21 06:40 | NUR ---
Problems reprioritized. Patient report given, questions answered & plan of care reviewed with KHADAR MEDINA.
--- NOTE | 2020-01-21 07:49 | NUR ---
RT AT PT'S BEDSIDE, ATTEMPTED TO OBTAIN WEANING PARAMETERS, PT ON SPONT 10 30% OVER NIGHT. PT'S VOLUMES WERE A LITTLE OVER 200'S AND RSBI IN THE 120'S. PT DESAT INTO THE 80'S AND FIO2 HAS INCREASED TO 40%. RT PLACED PT BACK ON RATE AND WILL ATTEMPT TO OBTAIN PARAMETERS AT A LATER TIME. Addendum: 01/21/20 at 0752 by Carey Metzger RT Amended: Links added.
[2020-01-21] MEDS: pantoprazole 40 MG vial IV SCH ×2 (07:54→21:15)
[2020-01-21] MEDS: amLODIPine 5mg tablet OGT SCH (07:54)
[2020-01-21] MEDS: lactobacillus rhamnosus 10,000 MMU CELLS/CAPSULE OGT SCH ×2 (07:55→21:15)
[2020-01-21] MEDS: levoTHYROXINE 75mcg tablet OGT SCH (07:55)
[2020-01-21] MEDS: carVEDilol 12.5mg tablet OGT SCH ×2 (07:55→21:19)
[2020-01-21] MEDS: cefepime 1GM in D5W 50mL 50 ML IV SCH (07:55)
[2020-01-21] MEDS: ARGININE/GLUTAMINE/CALCIUM BMB (JUVEN 19.3GM PKT) 1 EACH POWD.PACK OGT SCH ×2 (07:57→21:16)
[2020-01-21] MEDS: mineral oil/petrolatum, white cream 113gm jar TP SCH ×2 (07:57→21:16)
[2020-01-21] MEDS: docusate sodium 100mg/10ml UD cup OGT SCH ×2 (08:00→20:00)
[2020-01-21] MEDS: sodium ferric gluc complex inj 125 MG in normal saline 100ml IV soln 90 ML IV SCH (09:12)
--- NOTE | 2020-01-21 18:30 | NUR ---
Patient in room ICU 2038. I have received report from KHADAR MEDINA and had the opportunity to ask questions and assume patient care.
[2020-01-21] MEDS: HYDROcodone/acetaminophen 5mg/325mg tablet PO PRN (21:16)
[2020-01-21] MEDS: insulin glargine (Lantus) pen - multi-dose SQ SCH (21:30)
[2020-01-22] VITALS (24 sets, daily range): BP systolic 0–157; BP diastolic 46–68
[2020-01-22] MEDS: HYDROcodone/acetaminophen 5mg/325mg tablet PO PRN ×4 (01:17→20:16)
[2020-01-22] MEDS: mineral oil/petrolatum ophthal oint EACHEYE SCH ×4 (02:17→20:00)
[2020-01-22] MEDS: insulin regular, human U-100 3ml vial - multi-dose SQ SCH ×4 (02:17→21:36)
[2020-01-22] MEDS: nitroGLYCERIN 1gm ointment UD TP SCH ×3 (02:17→20:00)
[2020-01-22 02:42] LABS: BASOPHILS % (AUTO) 0.1 % (0-1); EOSINOPHILS % (AUTO) 0.1 % (0-6); HEMATOCRIT 26.6 % (35.0-45.0); HEMOGLOBIN 8.6 g/dl (12.0-16.0); LYMPHOCYTES # (AUTO) 0.5 X10'3 (1.1-4.8); LYMPHOCYTES % (AUTO) 5.4 % (21-51); MEAN CORPUSCULAR HEMOGLOBIN 29.2 PG (27.0-31.0); MEAN CORPUSCULAR HGB CONC 32.5 g/dL (33.0-36.5); MEAN CORPUSCULAR VOLUME 89.9 FL (78-98); MEAN PLATELET VOLUME 10.3 FL (7.4-10.4); MONOCYTES # (AUTO) 0.7 X10'3 (0-0.9); MONOCYTES % (AUTO) 7.2 % (2-12); NEUTROPHILS # (AUTO) 8.1 X10'3 (1.8-7.7); NEUTROPHILS % (AUTO) 87.2 % (42-75); PLATELET COUNT 205 X10'3 (140-440); RED BLOOD COUNT 2.95 X10'6 (4.20-5.60); RED CELL DISTRIBUTION WIDTH 16.6 % (11.5-14.5); WHITE BLOOD COUNT 9.3 X10'3 (4.5-11.0)
[2020-01-22 02:43] LABS: ALANINE AMINOTRANSFERASE 52 U/L (12-78); ALBUMIN 1.3 G/DL (3.4-5.0); ALBUMIN/GLOBULIN RATIO 0.3 (1.1-1.5); ALKALINE PHOSPHATASE 90 IU/L (46-116); ANION GAP 12 (8-16); ASPARTATE AMINO TRANSFERASE 64 U/L (10-37); BILIRUBIN,TOTAL 0.7 MG/DL (0.1-1.0); CALCIUM 7.3 MG/DL (8.5-10.1); CHLORIDE 96 MMOL/L (99-107); CREATININE 3.06 MG/DL (0.40-0.90); GLUCOSE 152 MG/DL (70-104); POTASSIUM 5.5 MMOL/L (3.5-5.1); PREALBUMIN 16.3 MG/DL (19-36); SODIUM 131 MMOL/L (135-145); TOTAL CARBON DIOXIDE 22.7 MMOL/L (24-32); TOTAL PROTEIN 5.2 G/DL (6.4-8.2); eGFR 15 ML/MIN
[2020-01-22 02:51] LABS: BLOOD UREA NITROGEN 158 MG/DL (7-18); BUN/CREATININE RATIO 51.6 (6.6-38.0)
[2020-01-22] MEDS: VANCOMYCIN LEVEL IV SCH (03:00)
[2020-01-22] MEDS: ipratropium/albuterol 3ml nebule NEB SCH ×6 (03:13→23:00)
--- NOTE | 2020-01-22 06:23 | NUR ---
Problems reprioritized. Patient report given, questions answered & plan of care reviewed with KHADAR MEDINA.
[2020-01-22] MEDS: pantoprazole 40 MG vial IV SCH ×2 (07:12→20:17)
[2020-01-22] MEDS: lactobacillus rhamnosus 10,000 MMU CELLS/CAPSULE OGT SCH ×2 (07:13→20:17)
[2020-01-22] MEDS: amLODIPine 5mg tablet OGT SCH (07:13)
[2020-01-22] MEDS: levoTHYROXINE 75mcg tablet OGT SCH (07:13)
[2020-01-22] MEDS: carVEDilol 12.5mg tablet OGT SCH ×2 (07:13→20:16)
[2020-01-22] MEDS: cefepime 1GM in D5W 50mL 50 ML IV SCH (07:14)
[2020-01-22] MEDS: docusate sodium 100mg/10ml UD cup OGT SCH ×2 (07:14→20:00)
[2020-01-22] MEDS: mineral oil/petrolatum, white cream 113gm jar TP SCH ×2 (07:15→20:20)
[2020-01-22] MEDS: sodium ferric gluc complex inj 125 MG in normal saline 100ml IV soln 90 ML IV SCH (08:23)
--- NOTE | 2020-01-22 12:17 | NUR ---
Reassessment: Pt remains intubated and tolerating TF at goal rate with residuals WNL. Pt continues receiving Julio César BID for wound healing needs. Wound improving per RN at critical care rounds. Last WOC note from 01/16 states patient's tailbone has a scabbed area and no wound bed was visible at that time. Last BM 01/20 and 01/21 documented as large liquids stools, having moderate prior, colace is being held, was receiving prior. Will continue to follow. Rec: 1. OGTF using Vital High Protein at 70ml/hr goal; to provide 1680 mL total volume, 1680 kcal, 1411 mL water, and 147 g protein. 2. Julio César packet BID to support wound healing needs. To provide with 120 mL free water and 30 mL water flush before and after administration to prevent tube clogging. 3. PALB Q /; daily wts 4. routine bowel care 5. when extubated advance diet as medically indicated to renal Addendum: 01/22/20 at [address] Amended: Links added.
[2020-01-22] MEDS: ARGININE/GLUTAMINE/CALCIUM BMB (JUVEN 19.3GM PKT) 1 EACH POWD.PACK OGT SCH ×2 (13:18→20:18)
--- NOTE | 2020-01-22 18:30 | NUR ---
Patient in room CICU 2008. I have received report from Analia MEDINA and had the opportunity to ask questions and assume patient care.
[2020-01-22] MEDS: insulin glargine (Lantus) pen - multi-dose SQ SCH (21:36)
[2020-01-23] VITALS (24 sets, daily range): BP systolic 94–135; BP diastolic 36–60
[2020-01-23] MEDS: HYDROcodone/acetaminophen 5mg/325mg tablet PO PRN ×4 (00:03→20:12)
[2020-01-23] MEDS: mineral oil/petrolatum ophthal oint EACHEYE SCH ×4 (02:00→20:14)
[2020-01-23] MEDS: ipratropium/albuterol 3ml nebule NEB SCH ×6 (02:51→22:43)
[2020-01-23] MEDS: VANCOMYCIN LEVEL IV SCH (03:00)
[2020-01-23] MEDS: nitroGLYCERIN 1gm ointment UD TP SCH ×4 (03:18→20:13)
[2020-01-23] MEDS: insulin regular, human U-100 3ml vial - multi-dose SQ SCH ×4 (03:18→20:23)
[2020-01-23 04:00] LABS: BASOPHILS % (AUTO) 0.1 % (0-1); EOSINOPHILS % (AUTO) 0.2 % (0-6); HEMATOCRIT 25.9 % (35.0-45.0); HEMOGLOBIN 8.5 g/dl (12.0-16.0); LYMPHOCYTES # (AUTO) 0.6 X10'3 (1.1-4.8); LYMPHOCYTES % (AUTO) 6.3 % (21-51); MEAN CORPUSCULAR HEMOGLOBIN 29.4 PG (27.0-31.0); MEAN CORPUSCULAR HGB CONC 32.7 g/dL (33.0-36.5); MEAN CORPUSCULAR VOLUME 89.7 FL (78-98); MEAN PLATELET VOLUME 10.1 FL (7.4-10.4); MONOCYTES # (AUTO) 0.5 X10'3 (0-0.9); MONOCYTES % (AUTO) 5.7 % (2-12); NEUTROPHILS # (AUTO) 7.8 X10'3 (1.8-7.7); NEUTROPHILS % (AUTO) 87.7 % (42-75); PLATELET COUNT 225 X10'3 (140-440); RED BLOOD COUNT 2.88 X10'6 (4.20-5.60); RED CELL DISTRIBUTION WIDTH 16.7 % (11.5-14.5); WHITE BLOOD COUNT 8.9 X10'3 (4.5-11.0)
[2020-01-23 04:05] LABS: ABG BASE EXCESS -6.3 mmol/L (-2.0-2.0); ABG HCO3 17.9 mmol/L (22.0-26.0); ABG OXYGEN SATURATION 95.6 % (94-97); ABG PCO2 (T) 29.4 mmHg (32.0-45.0); ABG PO2 (T) 79.8 mmHg (75.0-100.0); FCOHb 0.3 % (0.0-3.9); FMetHb 0.3 % (0.0-1.5); PATIENT TEMPERATURE 36.3; PEEP 5 cm H2O; TOTAL HEMOGLOBIN 7.9 G/dl (12.0-16.0)
[2020-01-23 04:20] LABS: ALANINE AMINOTRANSFERASE 52 U/L (12-78); ALBUMIN 1.3 G/DL (3.4-5.0); ALBUMIN/GLOBULIN RATIO 0.3 (1.1-1.5); ALKALINE PHOSPHATASE 87 IU/L (46-116); ANION GAP 13 (8-16); ASPARTATE AMINO TRANSFERASE 64 U/L (10-37); BILIRUBIN,TOTAL 0.7 MG/DL (0.1-1.0); BLOOD UREA NITROGEN 196 MG/DL (7-18); CALCIUM 7.4 MG/DL (8.5-10.1); CHLORIDE 92 MMOL/L (99-107); CREATININE 3.44 MG/DL (0.40-0.90); GLUCOSE 84 MG/DL (70-104); SODIUM 127 MMOL/L (135-145); TOTAL CARBON DIOXIDE 22.5 MMOL/L (24-32); TOTAL PROTEIN 5.1 G/DL (6.4-8.2); VANCOMYCIN,RANDOM 12.2 UG/ML; eGFR 13 ML/MIN
[2020-01-23 04:22] LABS: POTASSIUM 6.2 MMOL/L (3.5-5.1)
--- NOTE | 2020-01-23 06:17 | NUR ---
Problems reprioritized. Patient report given, questions answered & plan of care reviewed with Oly MEDINA.
[2020-01-23] MEDS: docusate sodium 100mg/10ml UD cup OGT SCH ×2 (08:00→20:00)
[2020-01-23] MEDS: carVEDilol 12.5mg tablet OGT SCH ×2 (08:00→20:13)
[2020-01-23] MEDS: pantoprazole 40 MG vial IV SCH ×2 (08:13→20:12)
[2020-01-23] MEDS: cefepime 1GM in D5W 50mL 50 ML IV SCH (08:13)
[2020-01-23] MEDS: lactobacillus rhamnosus 10,000 MMU CELLS/CAPSULE OGT SCH ×2 (08:13→20:13)
[2020-01-23] MEDS: amLODIPine 5mg tablet OGT SCH (08:13)
[2020-01-23] MEDS: mineral oil/petrolatum, white cream 113gm jar TP SCH ×2 (08:14→20:13)
[2020-01-23] MEDS: levoTHYROXINE 75mcg tablet OGT SCH (08:16)
[2020-01-23] MEDS: sodium ferric gluc complex inj 125 MG in normal saline 100ml IV soln 90 ML IV SCH (09:10)
[2020-01-23] MEDS ORDERED: normal saline 1000ml 100 ML IV PRN (10:45)
[2020-01-23] MEDS ORDERED: normal saline 1000ml 250 ML IV PRN (10:45)
[2020-01-23] MEDS ORDERED: heparin 1,000 units/ml 10ml inj HE ONE ×2 (10:50)
[2020-01-23] MEDS: fentaNYL/PF 50MCG/1 ML 2ML syringe IV PRN (12:02)
[2020-01-23] MEDS: ARGININE/GLUTAMINE/CALCIUM BMB (JUVEN 19.3GM PKT) 1 EACH POWD.PACK OGT SCH ×2 (13:27→20:13)
--- NOTE | 2020-01-23 14:05 | NUR ---
Reassessment: Pt continues tolerating TF at goal rate with GRV WNL. Pt continues with dialysis, to get a TDC per MD notes. Pt with a rectal tube, documented with 400 mL stool output 01/21 per I&O. Will continue to follow closely. Rec: 1. OGTF using Vital High Protein at 70ml/hr goal; to provide 1680 mL total volume/day, 1680 kcal, 1411 mL water, and 147 g protein. 2. Julio César packet BID to support wound healing needs. To provide with 120 mL free water and 30 mL water flush before and after administration to prevent tube clogging. 3. PALB Q /; daily wts 4. routine bowel care 5. when extubated advance diet as medically indicated to renal Addendum: 01/23/20 at [address] Amended: Links added.
--- NOTE | 2020-01-23 18:30 | NUR ---
Patient in room CICU 2007. I have received report from Oly MEDINA and had the opportunity to ask questions and assume patient care.
[2020-01-23] MEDS: insulin glargine (Lantus) pen - multi-dose SQ SCH (20:24)
[2020-01-23] MEDS ORDERED: sodium chloride inj. 154 MEQ in Dextrose 10%-water IV solution 961.5 ML IV SCH (22:40)
[2020-01-24] VITALS (23 sets, daily range): BP systolic 104–162; BP diastolic 38–58
[2020-01-24] MEDS ORDERED: Dextrose 10%-water IV solution 1,000 ML IV SCH
[2020-01-24] MEDS: HYDROcodone/acetaminophen 5mg/325mg tablet PO PRN ×2 (00:27→19:33)
[2020-01-24] MEDS: nitroGLYCERIN 1gm ointment UD TP SCH ×4 (02:39→20:28)
[2020-01-24] MEDS: mineral oil/petrolatum ophthal oint EACHEYE SCH ×4 (02:39→20:26)
[2020-01-24] MEDS: ipratropium/albuterol 3ml nebule NEB SCH ×6 (02:43→22:54)
[2020-01-24] MEDS: VANCOMYCIN LEVEL IV SCH (03:00)
[2020-01-24 04:50] LABS: ABG BASE EXCESS -3.6 mmol/L (-2.0-2.0); ABG HCO3 20.3 mmol/L (22.0-26.0); ABG PCO2 (T) 31.9 mmHg (32.0-45.0); ABG PO2 (T) 58.1 mmHg (75.0-100.0); FCOHb 0.2 % (0.0-3.9); FMetHb 0.3 % (0.0-1.5); FO2Hb 90.5 % (94-97); PATIENT TEMPERATURE 36.5; PEEP 5 cm H2O; TOTAL HEMOGLOBIN 9.4 G/dl (12.0-16.0)
[2020-01-24] MEDS: fentaNYL/PF 50MCG/1 ML 2ML syringe IV PRN (05:21)
--- NOTE | 2020-01-24 06:22 | NUR ---
Problems reprioritized. Patient report given, questions answered & plan of care reviewed with Alison .
[2020-01-24 07:40] LABS: BASOPHILS % (AUTO) 0.1 % (0-1); EOSINOPHILS % (AUTO) 0.1 % (0-6); HEMATOCRIT 25.4 % (35.0-45.0); HEMOGLOBIN 8.3 g/dl (12.0-16.0); LYMPHOCYTES # (AUTO) 0.4 X10'3 (1.1-4.8); LYMPHOCYTES % (AUTO) 4.3 % (21-51); MEAN CORPUSCULAR HEMOGLOBIN 29.6 PG (27.0-31.0); MEAN CORPUSCULAR HGB CONC 32.8 g/dL (33.0-36.5); MEAN CORPUSCULAR VOLUME 90.2 FL (78-98); MEAN PLATELET VOLUME 9.4 FL (7.4-10.4); MONOCYTES # (AUTO) 0.5 X10'3 (0-0.9); MONOCYTES % (AUTO) 4.9 % (2-12); NEUTROPHILS # (AUTO) 9.5 X10'3 (1.8-7.7); NEUTROPHILS % (AUTO) 90.6 % (42-75); PLATELET COUNT 235 X10'3 (140-440); RED BLOOD COUNT 2.82 X10'6 (4.20-5.60); RED CELL DISTRIBUTION WIDTH 16.4 % (11.5-14.5); WHITE BLOOD COUNT 10.5 X10'3 (4.5-11.0)
[2020-01-24] MEDS: docusate sodium 100mg/10ml UD cup OGT SCH ×2 (08:00→20:27)
[2020-01-24] MEDS: ARGININE/GLUTAMINE/CALCIUM BMB (JUVEN 19.3GM PKT) 1 EACH POWD.PACK OGT SCH ×2 (08:15→20:27)
[2020-01-24 08:19] LABS: ALANINE AMINOTRANSFERASE 66 U/L (12-78); ALBUMIN 1.2 G/DL (3.4-5.0); ALBUMIN/GLOBULIN RATIO 0.3 (1.1-1.5); ALKALINE PHOSPHATASE 86 IU/L (46-116); ANION GAP 11 (8-16); ASPARTATE AMINO TRANSFERASE 87 U/L (10-37); BILIRUBIN,TOTAL 0.6 MG/DL (0.1-1.0); BLOOD UREA NITROGEN 131 MG/DL (7-18); BUN/CREATININE RATIO 48.5 (6.6-38.0); CALCIUM 6.8 MG/DL (8.5-10.1); CHLORIDE 93 MMOL/L (99-107); GLUCOSE 360 MG/DL (70-104); SODIUM 126 MMOL/L (135-145); TOTAL CARBON DIOXIDE 22.4 MMOL/L (24-32); TOTAL PROTEIN 4.8 G/DL (6.4-8.2); eGFR 17 ML/MIN
[2020-01-24] MEDS: lactobacillus rhamnosus 10,000 MMU CELLS/CAPSULE OGT SCH ×2 (08:22→20:27)
[2020-01-24] MEDS: amLODIPine 5mg tablet OGT SCH (08:22)
[2020-01-24] MEDS: carVEDilol 12.5mg tablet OGT SCH ×2 (08:22→20:27)
[2020-01-24] MEDS: cefepime 1GM in D5W 50mL 50 ML IV SCH (08:23)
[2020-01-24] MEDS: pantoprazole 40 MG vial IV SCH ×2 (08:24→20:27)
[2020-01-24] MEDS: levoTHYROXINE 75mcg tablet OGT SCH (08:25)
[2020-01-24] MEDS: mineral oil/petrolatum, white cream 113gm jar TP SCH ×2 (08:26→20:27)
[2020-01-24] MEDS ORDERED: vancomycin/NS 1 GM ADD-VANTAGE 250 ML IV ONE (09:55)
[2020-01-24] MEDS: sodium ferric gluc complex inj 125 MG in normal saline 100ml IV soln 90 ML IV SCH (09:58)
[2020-01-24] MEDS ORDERED: tPA-cathflo 2 MG/2 ml IV flush IVF ONE (10:50)
[2020-01-24 15:09] LABS: PARTIAL THROMBOPLASTIN TIME 48 SECONDS (22-32)
[2020-01-24] MEDS ORDERED: LIDOcaine 1%/PF 5ML 10 MG/ML VIAL ONE (15:12)
[2020-01-24] MEDS ORDERED: heparin 1,000unit/ml 10ml vial 10 ML ONE (15:12)
--- NOTE | 2020-01-24 15:27 | NUR ---
Patient taken off unit by IR staff. RT accompanied patient.
[2020-01-24] MEDS: insulin regular, human U-100 3ml vial - multi-dose SQ SCH (20:45)
[2020-01-24] MEDS: insulin glargine (Lantus) pen - multi-dose SQ SCH (20:47)
[2020-01-25] VITALS (24 sets, daily range): BP systolic 102–141; BP diastolic 37–92
[2020-01-25] MEDS: HYDROcodone/acetaminophen 5mg/325mg tablet PO PRN ×5 (01:32→21:30)
[2020-01-25] MEDS: mineral oil/petrolatum ophthal oint EACHEYE SCH ×4 (01:32→21:31)
[2020-01-25] MEDS: nitroGLYCERIN 1gm ointment UD TP SCH ×2 (01:32→07:59)
[2020-01-25] MEDS: insulin regular, human U-100 3ml vial - multi-dose SQ SCH ×4 (02:50→21:41)
[2020-01-25] MEDS: VANCOMYCIN LEVEL IV SCH (03:00)
[2020-01-25] MEDS: ipratropium/albuterol 3ml nebule NEB SCH ×6 (03:49→23:18)
[2020-01-25 04:06] LABS: ABG BASE EXCESS -5.2 mmol/L (-2.0-2.0); ABG HCO3 18.5 mmol/L (22.0-26.0); ABG OXYGEN SATURATION 96.9 % (94-97); ABG PCO2 (T) 28.8 mmHg (32.0-45.0); ABG PO2 (T) 88.3 mmHg (75.0-100.0); ALLEN'S TEST POSITIVE; FCOHb 0.2 % (0.0-3.9); FMetHb 0.3 % (0.0-1.5); FO2Hb 96.4 % (94-97); PATIENT TEMPERATURE 36.4; PEEP 5 cm H2O; RESPIRATORY RATE 19 b/min; TOTAL HEMOGLOBIN 9.2 G/dl (12.0-16.0)
[2020-01-25 04:10] LABS: BASOPHILS % (AUTO) 0.1 % (0-1); EOSINOPHILS % (AUTO) 0.4 % (0-6); HEMATOCRIT 25.9 % (35.0-45.0); HEMOGLOBIN 8.4 g/dl (12.0-16.0); LYMPHOCYTES # (AUTO) 0.6 X10'3 (1.1-4.8); LYMPHOCYTES % (AUTO) 8.1 % (21-51); MEAN CORPUSCULAR HEMOGLOBIN 29.1 PG (27.0-31.0); MEAN CORPUSCULAR HGB CONC 32.3 g/dL (33.0-36.5); MEAN CORPUSCULAR VOLUME 89.9 FL (78-98); MEAN PLATELET VOLUME 9.4 FL (7.4-10.4); MONOCYTES # (AUTO) 0.6 X10'3 (0-0.9); MONOCYTES % (AUTO) 7.4 % (2-12); NEUTROPHILS # (AUTO) 6.3 X10'3 (1.8-7.7); PLATELET COUNT 258 X10'3 (140-440); RED BLOOD COUNT 2.88 X10'6 (4.20-5.60); RED CELL DISTRIBUTION WIDTH 16.5 % (11.5-14.5); WHITE BLOOD COUNT 7.5 X10'3 (4.5-11.0)
[2020-01-25 04:22] LABS: ALBUMIN 1.3 G/DL (3.4-5.0); ANION GAP 10 (8-16); CALCIUM 7.2 MG/DL (8.5-10.1); CHLORIDE 96 MMOL/L (99-107); CREATININE 3.15 MG/DL (0.40-0.90); GLUCOSE 99 MG/DL (70-104); MAGNESIUM 1.9 MG/DL (1.5-2.4); POTASSIUM 5.6 MMOL/L (3.5-5.1); PREALBUMIN 17.7 MG/DL (19-36); SODIUM 128 MMOL/L (135-145); TOTAL CARBON DIOXIDE 21.8 MMOL/L (24-32); VANCOMYCIN,RANDOM 17.7 UG/ML; eGFR 14 ML/MIN
[2020-01-25 04:34] LABS: BLOOD UREA NITROGEN 155 MG/DL (7-18)
[2020-01-25 04:35] LABS: BUN/CREATININE RATIO 49.2 (6.6-38.0)
--- NOTE | 2020-01-25 06:33 | NUR ---
Problems reprioritized. Patient report given, questions answered & plan of care reviewed with RITU MEDINA.
[2020-01-25] MEDS: docusate sodium 100mg/10ml UD cup OGT SCH ×2 (07:58→21:29)
[2020-01-25] MEDS: lactobacillus rhamnosus 10,000 MMU CELLS/CAPSULE OGT SCH ×2 (07:58→21:29)
[2020-01-25] MEDS: pantoprazole 40 MG vial IV SCH ×2 (07:58→21:29)
[2020-01-25] MEDS: levoTHYROXINE 75mcg tablet OGT SCH (07:58)
[2020-01-25] MEDS: cefepime 1GM in D5W 50mL 50 ML IV SCH (07:58)
[2020-01-25] MEDS: ARGININE/GLUTAMINE/CALCIUM BMB (JUVEN 19.3GM PKT) 1 EACH POWD.PACK OGT SCH ×2 (07:59→21:31)
[2020-01-25] MEDS: carVEDilol 12.5mg tablet OGT SCH ×2 (08:00→21:29)
[2020-01-25] MEDS: mineral oil/petrolatum, white cream 113gm jar TP SCH ×2 (08:00→21:31)
[2020-01-25] MEDS: amLODIPine 5mg tablet OGT SCH (08:00)
[2020-01-25] MEDS: sodium ferric gluc complex inj 125 MG in normal saline 100ml IV soln 90 ML IV SCH (09:39)
[2020-01-25] MEDS ORDERED: heparin 1,000unit/ml 10ml vial 10 ML IV ONE (09:58)
[2020-01-25] MEDS ORDERED: heparin 1,000 units/ml 10ml inj IV ONE (10:00)
[2020-01-25] MEDS ORDERED: albumin (human) 25% 100ml IV 100 ML IV PRN (10:00)
[2020-01-25] MEDS ORDERED: heparin 1,000 units/ml 10ml inj HE ONE ×2 (10:05)
--- NOTE | 2020-01-25 18:16 | NUR ---
Problems reprioritized. Patient report given, questions answered & plan of care reviewed with Dalia MEDINA.
--- NOTE | 2020-01-25 18:30 | NUR ---
Patient in room CICU 2008. I have received report from RITU MEDINA and had the opportunity to ask questions and assume patient care.
[2020-01-25] MEDS: insulin glargine (Lantus) pen - multi-dose SQ SCH (21:43)
[2020-01-26] VITALS (24 sets, daily range): BP systolic 108–160; BP diastolic 38–75
[2020-01-26] MEDS: HYDROcodone/acetaminophen 5mg/325mg tablet PO PRN ×2 (01:26→05:30)
[2020-01-26] MEDS: mineral oil/petrolatum ophthal oint EACHEYE SCH ×4 (02:00→19:35)
[2020-01-26] MEDS: VANCOMYCIN LEVEL IV SCH (03:00)
[2020-01-26] MEDS: ipratropium/albuterol 3ml nebule NEB SCH ×6 (03:32→23:02)
[2020-01-26] MEDS: insulin regular, human U-100 3ml vial - multi-dose SQ SCH (03:44)
[2020-01-26 03:46] LABS: BASOPHILS % (AUTO) 0.1 % (0-1); EOSINOPHILS % (AUTO) 0.6 % (0-6); HEMATOCRIT 24.9 % (35.0-45.0); HEMOGLOBIN 8.4 g/dl (12.0-16.0); LYMPHOCYTES # (AUTO) 0.6 X10'3 (1.1-4.8); LYMPHOCYTES % (AUTO) 7.6 % (21-51); MEAN CORPUSCULAR HEMOGLOBIN 30.2 PG (27.0-31.0); MEAN CORPUSCULAR HGB CONC 33.6 g/dL (33.0-36.5); MEAN CORPUSCULAR VOLUME 89.9 FL (78-98); MEAN PLATELET VOLUME 8.8 FL (7.4-10.4); MONOCYTES # (AUTO) 0.8 X10'3 (0-0.9); MONOCYTES % (AUTO) 9.5 % (2-12); NEUTROPHILS # (AUTO) 6.5 X10'3 (1.8-7.7); NEUTROPHILS % (AUTO) 82.2 % (42-75); PLATELET COUNT 269 X10'3 (140-440); RED BLOOD COUNT 2.77 X10'6 (4.20-5.60); RED CELL DISTRIBUTION WIDTH 16.9 % (11.5-14.5)
[2020-01-26 03:51] LABS: ABG BASE EXCESS -1.1 mmol/L (-2.0-2.0); ABG HCO3 22.1 mmol/L (22.0-26.0); ABG OXYGEN SATURATION 95.7 % (94-97); ABG PCO2 (T) 31.3 mmHg (32.0-45.0); ABG PO2 (T) 80.4 mmHg (75.0-100.0); ALLEN'S TEST POSITIVE; FCOHb 0.1 % (0.0-3.9); FMetHb 0.3 % (0.0-1.5); FO2Hb 95.3 % (94-97); PEEP 5 cm H2O; TOTAL HEMOGLOBIN 9.1 G/dl (12.0-16.0)
[2020-01-26 04:15] LABS: ALANINE AMINOTRANSFERASE 94 U/L (12-78); ALBUMIN 1.1 G/DL (3.4-5.0); ALBUMIN/GLOBULIN RATIO 0.3 (1.1-1.5); ALKALINE PHOSPHATASE 97 IU/L (46-116); ANION GAP 10 (8-16); ASPARTATE AMINO TRANSFERASE 123 U/L (10-37); BILIRUBIN,TOTAL 0.5 MG/DL (0.1-1.0); BLOOD UREA NITROGEN 102 MG/DL (7-18); CALCIUM 7.4 MG/DL (8.5-10.1); CHLORIDE 98 MMOL/L (99-107); CREATININE 2.17 MG/DL (0.40-0.90); GLUCOSE 82 MG/DL (70-104); POTASSIUM 4.3 MMOL/L (3.5-5.1); SODIUM 133 MMOL/L (135-145); TOTAL CARBON DIOXIDE 24.8 MMOL/L (24-32); TOTAL PROTEIN 4.8 G/DL (6.4-8.2); VANCOMYCIN,RANDOM 14.2 UG/ML; eGFR 22 ML/MIN
--- NOTE | 2020-01-26 06:19 | NUR ---
Problems reprioritized. Patient report given, questions answered & plan of care reviewed with RITU MEDINA.
[2020-01-26] MEDS: docusate sodium 100mg/10ml UD cup OGT SCH ×3 (07:51→19:37)
[2020-01-26] MEDS: amLODIPine 5mg tablet OGT SCH (07:51)
[2020-01-26] MEDS: pantoprazole 40 MG vial IV SCH ×2 (07:51→19:35)
[2020-01-26] MEDS: carVEDilol 12.5mg tablet OGT SCH ×2 (07:51→19:35)
[2020-01-26] MEDS: lactobacillus rhamnosus 10,000 MMU CELLS/CAPSULE OGT SCH ×2 (07:51→19:35)
[2020-01-26] MEDS: levoTHYROXINE 75mcg tablet OGT SCH (07:52)
[2020-01-26] MEDS: cefepime 1GM in D5W 50mL 50 ML IV SCH (07:52)
[2020-01-26] MEDS: mineral oil/petrolatum, white cream 113gm jar TP SCH ×2 (07:52→19:36)
[2020-01-26] MEDS: ARGININE/GLUTAMINE/CALCIUM BMB (JUVEN 19.3GM PKT) 1 EACH POWD.PACK OGT SCH ×2 (08:08→19:35)
[2020-01-26] MEDS: sodium ferric gluc complex inj 125 MG in normal saline 100ml IV soln 100 ML IV SCH (09:01)
[2020-01-26] MEDS: HYDROmorphone inj. 0.5 MG/0.5 ML DISP.SYRIN IV PRN ×2 (11:07→21:49)
[2020-01-26] MEDS: sodium chloride 3% for inhalation 4ml nebule IH SCH ×4 (11:39→23:02)
--- NOTE | 2020-01-26 11:44 | NUR ---
Reassessment: Patient was extubated this morning. RN placed BSS consult, pending assessment by MOTOR AND GENERATOR ASSEMBLER. Tube feedings stopped. Continuing on HD. Has rectal tube, 550 ml out yesterday, is receiving cefapime, possibly r/t stool output. Pt also receiving was receiving colace, wont receive today as OG tube is out after extubation. Rec: 1. advance diet as medically indicated to renal texture per MOTOR AND GENERATOR ASSEMBLER recommendations 2. When has passed swallow eval recommend adding Julio César supplementation to oral diet BID. 3. bowel care as needed recommend not to give colace when with diarrhea 4. wt per rx Addendum: 01/26/20 at [address] Amended: Links added.
--- NOTE | 2020-01-26 12:48 | NUR ---
I have reviewed and agree with all medications administered and interventions performed by [facility] Student Amy Bhavana. Addendum: 01/26/20 at 1248 by Iesha Watts RT Amended: Links added.
--- NOTE | 2020-01-26 13:49 | NUR ---
Tube feeding consult: Patient was extubated this morning. RN placed BSS consult, failed swallow evaluation. Corpak for feeding placed today, pending confirmation. Continuing on HD. Has rectal tube, 550 ml out yesterday, is receiving cefapime, possibly r/t stool output. Pt also receiving was receiving colace, recommend not to give when with diarrhea, d/w RN. Rec: 1. once corpak placed and confirmed recommend continuous tube feeding using Nepro at 50 ml/hr to provide total 1200 ml volume, 2160 cals, 97 g protein, 872 ml water. 2. Recommend to provide Julio César packet twice daily to support wound healing needs. Recommend to provide with 120ml free water and 30ml water flush before/after administration to prevent tube clogging. 3. PALB q /; daily wts 4. when can pass swallow eval advance diet as medically indicated to renal texture per [employer]ER 5. When has passed swallow eval recommend adding Julio César supplementation to oral diet BID. 6. bowel care as needed recommend not to give colace when with diarrhea Addendum: 01/26/20 at [address] Amended: Links added.
[2020-01-26] MEDS: HYDROcodone/acetaminophen 10/325mg tab PO PRN ×2 (14:42→19:35)
--- NOTE | 2020-01-26 18:21 | NUR ---
Problems reprioritized. Patient report given, questions answered & plan of care reviewed with Mac RN.
[2020-01-26] MEDS: insulin glargine (Lantus) pen - multi-dose SQ SCH (21:00)
[2020-01-27] VITALS (24 sets, daily range): BP systolic 100–147; BP diastolic 30–59
[2020-01-27] MEDS: HYDROcodone/acetaminophen 10/325mg tab PO PRN ×5 (01:25→20:30)
[2020-01-27] MEDS: mineral oil/petrolatum ophthal oint EACHEYE SCH ×2 (02:00→07:15)
[2020-01-27] MEDS: insulin regular, human U-100 3ml vial - multi-dose SQ SCH ×4 (02:20→20:34)
[2020-01-27] MEDS: VANCOMYCIN LEVEL IV SCH (02:21)
[2020-01-27 02:48] LABS: BASOPHILS % (AUTO) 0.1 % (0-1); EOSINOPHILS # (AUTO) 0.1 X10'3 (0-0.9); HEMATOCRIT 26.2 % (35.0-45.0); HEMOGLOBIN 8.5 g/dl (12.0-16.0); LYMPHOCYTES # (AUTO) 0.5 X10'3 (1.1-4.8); LYMPHOCYTES % (AUTO) 6.7 % (21-51); MEAN CORPUSCULAR HEMOGLOBIN 29.5 PG (27.0-31.0); MEAN CORPUSCULAR HGB CONC 32.6 g/dL (33.0-36.5); MEAN CORPUSCULAR VOLUME 90.6 FL (78-98); MEAN PLATELET VOLUME 8.9 FL (7.4-10.4); MONOCYTES # (AUTO) 0.7 X10'3 (0-0.9); MONOCYTES % (AUTO) 9.3 % (2-12); NEUTROPHILS # (AUTO) 6.2 X10'3 (1.8-7.7); NEUTROPHILS % (AUTO) 82.9 % (42-75); PLATELET COUNT 285 X10'3 (140-440); RED CELL DISTRIBUTION WIDTH 16.8 % (11.5-14.5); WHITE BLOOD COUNT 7.4 X10'3 (4.5-11.0)
[2020-01-27] MEDS: sodium chloride 3% for inhalation 4ml nebule IH SCH ×3 (03:08→12:29)
[2020-01-27 03:09] LABS: ALANINE AMINOTRANSFERASE 112 U/L (12-78); ALBUMIN 1.2 G/DL (3.4-5.0); ALBUMIN/GLOBULIN RATIO 0.3 (1.1-1.5); ALKALINE PHOSPHATASE 126 IU/L (46-116); ANION GAP 10 (8-16); ASPARTATE AMINO TRANSFERASE 135 U/L (10-37); BILIRUBIN,TOTAL 0.6 MG/DL (0.1-1.0); BLOOD UREA NITROGEN 122 MG/DL (7-18); BUN/CREATININE RATIO 47.1 (6.6-38.0); CALCIUM 7.3 MG/DL (8.5-10.1); CHLORIDE 98 MMOL/L (99-107); CREATININE 2.59 MG/DL (0.40-0.90); GLUCOSE 167 MG/DL (70-104); MAGNESIUM 1.8 MG/DL (1.5-2.4); POTASSIUM 4.8 MMOL/L (3.5-5.1); SODIUM 132 MMOL/L (135-145); TOTAL CARBON DIOXIDE 23.6 MMOL/L (24-32); TOTAL PROTEIN 4.9 G/DL (6.4-8.2); VANCOMYCIN,RANDOM 12.5 UG/ML; eGFR 18 ML/MIN
[2020-01-27] MEDS: ipratropium/albuterol 3ml nebule NEB SCH ×6 (03:09→23:09)
[2020-01-27] MEDS: HYDROmorphone inj. 0.5 MG/0.5 ML DISP.SYRIN IV PRN (03:45)
[2020-01-27] MEDS: pantoprazole 40 MG vial IV SCH ×2 (07:14→20:28)
[2020-01-27] MEDS: levoTHYROXINE 75mcg tablet OGT SCH (07:14)
[2020-01-27] MEDS: lactobacillus rhamnosus 10,000 MMU CELLS/CAPSULE OGT SCH ×2 (07:14→20:29)
[2020-01-27] MEDS: cefepime inj. 1 GM in normal saline 100ml IV soln 100 ML IV SCH (07:14)
[2020-01-27] MEDS: docusate sodium 100mg/10ml UD cup OGT SCH ×2 (07:15→20:29)
[2020-01-27] MEDS: carVEDilol 12.5mg tablet OGT SCH ×2 (07:15→20:29)
[2020-01-27] MEDS: mineral oil/petrolatum, white cream 113gm jar TP SCH ×2 (07:15→20:30)
[2020-01-27] MEDS: amLODIPine 5mg tablet OGT SCH (07:15)
[2020-01-27] MEDS: ARGININE/GLUTAMINE/CALCIUM BMB (JUVEN 19.3GM PKT) 1 EACH POWD.PACK OGT SCH ×2 (07:16→20:29)
[2020-01-27] MEDS: sodium ferric gluc complex inj 125 MG in normal saline 100ml IV soln 100 ML IV SCH (07:54)
[2020-01-27] MEDS ORDERED: heparin 1,000unit/ml 10ml vial 10 ML IV ONE (09:17)
[2020-01-27] MEDS ORDERED: heparin 1,000 units/ml 10ml inj IV ONE (09:20)
[2020-01-27] MEDS ORDERED: albumin (human) 25% 100ml IV 100 ML IV PRN (09:20)
[2020-01-27] MEDS ORDERED: heparin 1,000 units/ml 10ml inj HE ONE ×2 (09:25)
[2020-01-27] MEDS: scopolamine 1.5mg patch.TD72 TD SCH (11:46)
--- NOTE | 2020-01-27 18:30 | NUR ---
Patient in room CICU 2008. I have received report from Kofi MEDINA and had the opportunity to ask questions and assume patient care.
--- NOTE | 2020-01-27 18:31 | NUR ---
Problems reprioritized. Patient report given, questions answered & plan of care reviewed with Kimberly MEDINA.
[2020-01-27] MEDS: insulin glargine (Lantus) pen - multi-dose SQ SCH (20:35)
[2020-01-28] VITALS (23 sets, daily range): BP systolic 115–147; BP diastolic 37–54
[2020-01-28] MEDS: HYDROcodone/acetaminophen 10/325mg tab PO PRN ×3 (00:37→10:24)
[2020-01-28] MEDS: insulin regular, human U-100 3ml vial - multi-dose SQ SCH ×4 (02:21→20:28)
[2020-01-28 02:44] LABS: ALANINE AMINOTRANSFERASE 137 U/L (12-78); ALBUMIN 1.2 G/DL (3.4-5.0); ALBUMIN/GLOBULIN RATIO 0.3 (1.1-1.5); ALKALINE PHOSPHATASE 153 IU/L (46-116); ANION GAP 5 (8-16); ASPARTATE AMINO TRANSFERASE 157 U/L (10-37); BILIRUBIN,TOTAL 0.4 MG/DL (0.1-1.0); BLOOD UREA NITROGEN 70 MG/DL (7-18); BUN/CREATININE RATIO 39.5 (6.6-38.0); CALCIUM 7.4 MG/DL (8.5-10.1); CHLORIDE 102 MMOL/L (99-107); CREATININE 1.77 MG/DL (0.40-0.90); GLUCOSE 125 MG/DL (70-104); MAGNESIUM 1.8 MG/DL (1.5-2.4); SODIUM 136 MMOL/L (135-145); TOTAL CARBON DIOXIDE 29.3 MMOL/L (24-32); TOTAL PROTEIN 4.8 G/DL (6.4-8.2); VANCOMYCIN,RANDOM 10.2 UG/ML; eGFR 27 ML/MIN
[2020-01-28] MEDS: VANCOMYCIN LEVEL IV SCH (03:00)
[2020-01-28 03:13] LABS: BASOPHILS % (AUTO) 0.1 % (0-1); EOSINOPHILS % (AUTO) 0.4 % (0-6); HEMATOCRIT 25.3 % (35.0-45.0); HEMOGLOBIN 8.2 g/dl (12.0-16.0); LYMPHOCYTES # (AUTO) 0.4 X10'3 (1.1-4.8); LYMPHOCYTES % (AUTO) 5.9 % (21-51); MEAN CORPUSCULAR HEMOGLOBIN 29.5 PG (27.0-31.0); MEAN CORPUSCULAR HGB CONC 32.4 g/dL (33.0-36.5); MEAN PLATELET VOLUME 8.3 FL (7.4-10.4); MONOCYTES # (AUTO) 0.7 X10'3 (0-0.9); MONOCYTES % (AUTO) 8.8 % (2-12); NEUTROPHILS # (AUTO) 6.3 X10'3 (1.8-7.7); NEUTROPHILS % (AUTO) 84.8 % (42-75); PLATELET COUNT 289 X10'3 (140-440); RED BLOOD COUNT 2.79 X10'6 (4.20-5.60); RED CELL DISTRIBUTION WIDTH 17.1 % (11.5-14.5); WHITE BLOOD COUNT 7.4 X10'3 (4.5-11.0)
[2020-01-28] MEDS: ipratropium/albuterol 3ml nebule NEB SCH ×6 (03:33→23:49)
--- NOTE | 2020-01-28 06:42 | NUR ---
Problems reprioritized. Patient report given, questions answered & plan of care reviewed with Mariah MEDINA.
[2020-01-28] MEDS ORDERED: vancomycin/NS 1 GM ADD-VANTAGE 250 ML IV ONE (08:00)
[2020-01-28] MEDS: cefepime inj. 1 GM in normal saline 100ml IV soln 100 ML IV SCH (08:48)
[2020-01-28] MEDS: pantoprazole 40 MG vial IV SCH ×2 (08:48→20:11)
[2020-01-28] MEDS: lactobacillus rhamnosus 10,000 MMU CELLS/CAPSULE OGT SCH ×2 (08:49→20:00)
[2020-01-28] MEDS: docusate sodium 100mg/10ml UD cup OGT SCH ×2 (08:49→20:00)
[2020-01-28] MEDS: amLODIPine 5mg tablet OGT SCH (08:49)
[2020-01-28] MEDS: sodium ferric gluc complex inj 125 MG in normal saline 100ml IV soln 100 ML IV SCH (08:49)
[2020-01-28] MEDS: carVEDilol 12.5mg tablet OGT SCH ×2 (08:49→20:11)
[2020-01-28] MEDS: levoTHYROXINE 75mcg tablet OGT SCH (08:53)
[2020-01-28] MEDS: ARGININE/GLUTAMINE/CALCIUM BMB (JUVEN 19.3GM PKT) 1 EACH POWD.PACK OGT SCH ×2 (10:24→20:15)
[2020-01-28] MEDS: mineral oil/petrolatum, white cream 113gm jar TP SCH ×2 (10:24→20:16)
[2020-01-28] MEDS: HYDROmorphone inj. 0.5 MG/0.5 ML DISP.SYRIN IV PRN (20:10)
[2020-01-28] MEDS: insulin glargine (Lantus) pen - multi-dose SQ SCH (20:25)
[2020-01-29] VITALS (24 sets, daily range): BP systolic 130–168; BP diastolic 48–61
--- NOTE | 2020-01-29 01:13 | NUR ---
Patient in room CICU 2007. I have received report from CAROL Condon and had the opportunity to ask questions and assume patient care.
[2020-01-29] MEDS: HYDROmorphone inj. 0.5 MG/0.5 ML DISP.SYRIN IV PRN ×3 (01:59→21:14)
[2020-01-29] MEDS: VANCOMYCIN LEVEL IV SCH (03:00)
[2020-01-29] MEDS: insulin regular, human U-100 3ml vial - multi-dose SQ SCH ×4 (03:38→21:12)
[2020-01-29] MEDS: ipratropium/albuterol 3ml nebule NEB SCH ×6 (03:46→23:54)
[2020-01-29 03:53] LABS: ALANINE AMINOTRANSFERASE 154 U/L (12-78); ALBUMIN 1.3 G/DL (3.4-5.0); ALBUMIN/GLOBULIN RATIO 0.3 (1.1-1.5); ALKALINE PHOSPHATASE 179 IU/L (46-116); ANION GAP 6 (8-16); ASPARTATE AMINO TRANSFERASE 158 U/L (10-37); BILIRUBIN,TOTAL 0.5 MG/DL (0.1-1.0); BLOOD UREA NITROGEN 101 MG/DL (7-18); BUN/CREATININE RATIO 45.1 (6.6-38.0); CHLORIDE 99 MMOL/L (99-107); CREATININE 2.24 MG/DL (0.40-0.90); GLUCOSE 142 MG/DL (70-104); POTASSIUM 4.7 MMOL/L (3.5-5.1); SODIUM 134 MMOL/L (135-145); TOTAL CARBON DIOXIDE 28.7 MMOL/L (24-32); TOTAL PROTEIN 5.1 G/DL (6.4-8.2); eGFR 21 ML/MIN
--- NOTE | 2020-01-29 06:15 | NUR ---
Patient in room CICU 2008. I have received report from CAROL Russ and had the opportunity to ask questions and assume patient care.
--- NOTE | 2020-01-29 06:26 | NUR ---
Problems reprioritized. Patient report given, questions answered & plan of care reviewed with CAROL Kinsey.
[2020-01-29 07:14] LABS: HEMOGLOBIN 8.8 g/dl (12.0-16.0)
[2020-01-29 07:17] LABS: BASOPHILS % (AUTO) 0.1 % (0-1); EOSINOPHILS % (AUTO) 0.5 % (0-6); HEMATOCRIT 26.5 % (35.0-45.0); LYMPHOCYTES # (AUTO) 0.5 X10'3 (1.1-4.8); LYMPHOCYTES % (AUTO) 5.2 % (21-51); MEAN CORPUSCULAR HEMOGLOBIN 30.6 PG (27.0-31.0); MEAN CORPUSCULAR HGB CONC 33.3 g/dL (33.0-36.5); MEAN CORPUSCULAR VOLUME 91.9 FL (78-98); MEAN PLATELET VOLUME 8.5 FL (7.4-10.4); MONOCYTES # (AUTO) 0.8 X10'3 (0-0.9); MONOCYTES % (AUTO) 7.9 % (2-12); NEUTROPHILS # (AUTO) 8.4 X10'3 (1.8-7.7); NEUTROPHILS % (AUTO) 86.3 % (42-75); PLATELET COUNT 302 X10'3 (140-440); RED BLOOD COUNT 2.88 X10'6 (4.20-5.60); RED CELL DISTRIBUTION WIDTH 17.2 % (11.5-14.5); WHITE BLOOD COUNT 9.7 X10'3 (4.5-11.0)
[2020-01-29] MEDS: cefepime inj. 1 GM in normal saline 100ml IV soln 100 ML IV SCH (07:17)
[2020-01-29] MEDS: levoTHYROXINE 75mcg tablet OGT SCH (07:18)
[2020-01-29] MEDS: amLODIPine 5mg tablet OGT SCH (07:18)
[2020-01-29] MEDS: docusate sodium 100mg/10ml UD cup OGT SCH ×2 (07:18→20:00)
[2020-01-29] MEDS: lactobacillus rhamnosus 10,000 MMU CELLS/CAPSULE OGT SCH ×2 (07:18→20:00)
[2020-01-29] MEDS: pantoprazole 40 MG vial IV SCH ×2 (07:18→21:04)
[2020-01-29] MEDS: ARGININE/GLUTAMINE/CALCIUM BMB (JUVEN 19.3GM PKT) 1 EACH POWD.PACK OGT SCH ×2 (07:18→21:05)
[2020-01-29] MEDS: carVEDilol 12.5mg tablet OGT SCH ×2 (07:18→21:04)
[2020-01-29] MEDS: mineral oil/petrolatum, white cream 113gm jar TP SCH ×2 (07:32→21:05)
[2020-01-29] MEDS: sodium ferric gluc complex inj 125 MG in normal saline 100ml IV soln 100 ML IV SCH (08:30)
--- NOTE | 2020-01-29 11:39 | NUR ---
Discontinued patients rectal tube per MD orders. Patient tolerated well. Will assess and offer for bathroom needs. Will continue to monitor.
--- NOTE | 2020-01-29 14:08 | NUR ---
Tolerating corpak tube feeding with Nepro at 50 ml/hr. Continuing on HD. Pending eventual transfer to LT[facility] per MD note. Per MD at rounds rectal tube will be removed so patient can get up and move more. Only small, liquid stool now. Receiving colace as needed to maintain bowel regularity, not needed if with diarrhea. Rec: 1. once corpak placed and confirmed recommend continuous tube feeding using Nepro at 50 ml/hr to provide total 1200 ml volume, 2160 cals, 97 g protein, 872 ml water. 2. Recommend to provide Julio César packet twice daily to support wound healing needs. Recommend to provide with 120ml free water and 30ml water flush before/after administration to prevent tube clogging. 3. PALB q /; daily wts 4. when can pass swallow eval advance diet as medically indicated to renal texture per [employer] 5. When has passed swallow eval recommend adding Julio César supplementation to oral diet BID. 6. bowel care as needed recommend not to give colace when with diarrhea Addendum: 01/29/20 at [address] Amended: Links added.
[2020-01-29] MEDS: insulin glargine (Lantus) pen - multi-dose SQ SCH (21:10)
[2020-01-30] VITALS (21 sets, daily range): BP systolic 115–174; BP diastolic 38–61
[2020-01-30] MEDS: HYDROcodone/acetaminophen 10/325mg tab PO PRN ×2 (00:17→05:23)
[2020-01-30] MEDS: HYDROmorphone inj. 0.5 MG/0.5 ML DISP.SYRIN IV PRN ×4 (02:57→18:32)
[2020-01-30] MEDS: VANCOMYCIN LEVEL IV SCH (03:00)
[2020-01-30] MEDS: insulin regular, human U-100 3ml vial - multi-dose SQ SCH ×2 (03:09→14:32)
[2020-01-30] MEDS: ipratropium/albuterol 3ml nebule NEB SCH ×5 (03:16→19:19)
[2020-01-30 05:46] LABS: ALANINE AMINOTRANSFERASE 166 U/L (12-78); ALBUMIN 1.4 G/DL (3.4-5.0); ALBUMIN/GLOBULIN RATIO 0.4 (1.1-1.5); ALKALINE PHOSPHATASE 193 IU/L (46-116); ANION GAP 11 (8-16); ASPARTATE AMINO TRANSFERASE 144 U/L (10-37); BILIRUBIN,TOTAL 0.5 MG/DL (0.1-1.0); BLOOD UREA NITROGEN 134 MG/DL (7-18); BUN/CREATININE RATIO 47.7 (6.6-38.0); CALCIUM 8.1 MG/DL (8.5-10.1); CHLORIDE 98 MMOL/L (99-107); CREATININE 2.81 MG/DL (0.40-0.90); GLUCOSE 139 MG/DL (70-104); MAGNESIUM 2.3 MG/DL (1.5-2.4); POTASSIUM 4.9 MMOL/L (3.5-5.1); SODIUM 132 MMOL/L (135-145); TOTAL CARBON DIOXIDE 23.5 MMOL/L (24-32); TOTAL PROTEIN 5.4 G/DL (6.4-8.2); VANCOMYCIN,RANDOM 14.9 UG/ML; eGFR 16 ML/MIN
[2020-01-30 05:53] LABS: BASOPHILS % (AUTO) 0.3 % (0-1); EOSINOPHILS # (AUTO) 0.1 X10'3 (0-0.9); EOSINOPHILS % (AUTO) 0.6 % (0-6); HEMATOCRIT 30.5 % (35.0-45.0); HEMOGLOBIN 9.7 g/dl (12.0-16.0); LYMPHOCYTES # (AUTO) 0.8 X10'3 (1.1-4.8); LYMPHOCYTES % (AUTO) 8.3 % (21-51); MEAN CORPUSCULAR HEMOGLOBIN 29.5 PG (27.0-31.0); MEAN CORPUSCULAR HGB CONC 31.9 g/dL (33.0-36.5); MEAN CORPUSCULAR VOLUME 92.3 FL (78-98); MEAN PLATELET VOLUME 8.7 FL (7.4-10.4); MONOCYTES # (AUTO) 0.8 X10'3 (0-0.9); MONOCYTES % (AUTO) 8.1 % (2-12); NEUTROPHILS # (AUTO) 7.7 X10'3 (1.8-7.7); NEUTROPHILS % (AUTO) 82.7 % (42-75); PLATELET COUNT 288 X10'3 (140-440); RED CELL DISTRIBUTION WIDTH 17.6 % (11.5-14.5); WHITE BLOOD COUNT 9.3 X10'3 (4.5-11.0)
[2020-01-30] MEDS ORDERED: albumin (human) 25% 100ml IV 100 ML IV PRN (07:05)
[2020-01-30] MEDS ORDERED: heparin 1,000unit/ml 10ml vial 10 ML IV ONE (07:05)
[2020-01-30] MEDS ORDERED: heparin 1,000 units/ml 10ml inj IV ONE (07:05)
[2020-01-30] MEDS ORDERED: heparin 1,000 units/ml 10ml inj HE ONE ×2 (07:10)
[2020-01-30] MEDS: amLODIPine 5mg tablet OGT SCH (07:24)
[2020-01-30] MEDS: pantoprazole 40 MG vial IV SCH ×2 (07:25→19:56)
[2020-01-30] MEDS: ARGININE/GLUTAMINE/CALCIUM BMB (JUVEN 19.3GM PKT) 1 EACH POWD.PACK OGT SCH ×2 (07:25→19:57)
[2020-01-30] MEDS: cefepime inj. 1 GM in normal saline 100ml IV soln 100 ML IV SCH (07:25)
[2020-01-30] MEDS: lactobacillus rhamnosus 10,000 MMU CELLS/CAPSULE OGT SCH ×2 (07:25→19:57)
[2020-01-30] MEDS: mineral oil/petrolatum, white cream 113gm jar TP SCH ×2 (07:25→19:58)
[2020-01-30] MEDS: docusate sodium 100mg/10ml UD cup OGT SCH ×2 (07:25→19:57)
[2020-01-30] MEDS: carVEDilol 12.5mg tablet OGT SCH ×2 (07:25→19:57)
[2020-01-30] MEDS: levoTHYROXINE 75mcg tablet OGT SCH (07:25)
[2020-01-30] MEDS: sodium ferric gluc complex inj 125 MG in normal saline 100ml IV soln 100 ML IV SCH (08:26)
[2020-01-30] MEDS: scopolamine 1.5mg patch.TD72 TD SCH (10:59)
--- NOTE | 2020-01-30 19:39 | NUR ---
full report with head to toe assessment and background given to angel justice rn at [facility]. patient is due to transfer tonight via [facility] near 20:00 per report. vss, patient is aware of what is transpiring and that her is aware also. she nods yes appropriately. patient was medicated for pain at start of shift for pain. pericare complete which is red and excoriated. wound dressings were changed on days. cdi. triple lumen midline flushed clamped and capped. no blood return on any port. reported this to angel rn also making extra note that it is a midline - not a picc. patients very wet cough. cough is slightly better but still needs sxn. for brown hong creamy - sm - mod amount. room air, sats are 96 %, hr 65 sinus, 133/46 (75) LUE cuff. disconnecting nepro . not covering for insulin - Regular or Lantus - Angel rn is aware of this. I will give 20:00 meds. angel rn also aware of this. suarez in place draining 10 cloudy yellow. right TCD dressing cdi. belongings with patient: 2 pink slip on shoes, 1 pair of underwear and a pink striped house coat. these are the only belonging. patient updated on all info.
[2020-01-30] MEDS: insulin glargine (Lantus) pen - multi-dose SQ SCH (20:20)
--- NOTE | 2020-01-30 20:45 | NUR ---
[facility] ARRIVED TO TRANSFER, REPORT GIVEN, PATIENT WITH VSS, PATIENT UPDATED WELL HER WHO CALLED IN [facility] WAS ARRIVING. HE IS AWARE SHE IS LEAVING FOR [facility] NOW.
== END 2020-01-30 21:38 | DRG 207 ==
LOC: ER 23:51 → ED HOLD 01-09 01:47 → SUR 3N 01-09 02:30 → PCU 3S 01-09 15:40 → CICU 2S 01-10 13:34 → ICU 2S 01-17 00:13 → CICU 2S 01-22 16:17
PROVIDERS: ADMIT Family Medicine; ATTEND Family Medicine
PROC: 05H533Z Insertion of Infusion Device into Right Subclavian Vein, Percutaneous Approach (ICD-10-PCS; principal; 2020-01-10)
PROC: B546ZZA Ultrasonography of Right Subclavian Vein, Guidance (ICD-10-PCS; 2020-01-10)
PROC: 06HY33Z Insertion of Infusion Device into Lower Vein, Percutaneous Approach (ICD-10-PCS; 2020-01-10)
PROC: B54BZZA Ultrasonography of Right Lower Extremity Veins, Guidance (ICD-10-PCS; 2020-01-10)
PROC: 5A1955Z Respiratory Ventilation, Greater than 96 Consecutive Hours (ICD-10-PCS; 2020-01-10)
PROC: 0BH17EZ Insertion of Endotracheal Airway into Trachea, Via Natural or Artificial Opening (ICD-10-PCS; 2020-01-10)
PROC: 5A1D70Z Performance of Urinary Filtration, Intermittent, Less than 6 Hours Per Day (ICD-10-PCS; 2020-01-13)
PROC: 30233N1 Transfusion of Nonautologous Red Blood Cells into Peripheral Vein, Percutaneous Approach (ICD-10-PCS; 2020-01-18)
PROC: 0JH63XZ Insertion of Tunneled Vascular Access Device into Chest Subcutaneous Tissue and Fascia, Percutaneous Approach (ICD-10-PCS; 2020-01-24)
PROC: 02HV33Z Insertion of Infusion Device into Superior Vena Cava, Percutaneous Approach (ICD-10-PCS; 2020-01-24)
PROC: B548ZZA Ultrasonography of Superior Vena Cava, Guidance (ICD-10-PCS; 2020-01-24)
PROC: B5181ZA Fluoroscopy of Superior Vena Cava using Low Osmolar Contrast, Guidance (ICD-10-PCS; 2020-01-24)
DX: J96.00 Acute respiratory failure, unspecified whether with hypoxia or hypercapnia (principal); N17.0 Acute kidney failure with tubular necrosis; J18.9 Pneumonia, unspecified organism; I13.0 Hypertensive heart and chronic kidney disease with heart failure and stage 1 through stage 4 chronic kidney disease, or unspecified chronic kidney disease; J44.1 Chronic obstructive pulmonary disease with (acute) exacerbation; L12.0 Bullous pemphigoid; J44.0 Chronic obstructive pulmonary disease with (acute) lower respiratory infection; G93.40 Encephalopathy, unspecified; R57.9 Shock, unspecified; E11.22 Type 2 diabetes mellitus with diabetic chronic kidney disease; N18.3 Chronic kidney disease, stage 3 (moderate); I48.91 Unspecified atrial fibrillation; D63.1 Anemia in chronic kidney disease; I50.9 Heart failure, unspecified; Z86.73 Personal history of transient ischemic attack (TIA), and cerebral infarction without residual deficits; Z88.1 Allergy status to other antibiotic agents; Z88.8 Allergy status to other drugs, medicaments and biological substances; Z82.3 Family history of stroke; Z90.710 Acquired absence of both cervix and uterus
CPT/HCPCS: 36410; 36415; 36430; 36558; 36600; 70450; 71045; 74018; 74176; 76937; 80048; 80053; 80162; 80202; 81001; 82272; 82570; 82803; 82810; 82948; 83036; 83540; 83550; 83605; 83735; 83880; 83935; 84100; 84134; 84145; 84300; 84443; 84484; 85018; 85025; 85027; 85610; 85730; 86885; 86900; 86901; 86920; 87040; 87070; 87081; 87207; 87340; 90935; 92508; 92616; 93005; 93306; 93925; 94002; 94003; 94640; 94667; 94668; 94760; 97110; 97161; 97530; 99285; A4218; A9270; C1750; C1769; C1894; C9113; G0378; J0692; J1160; J1170; J1265; J1644; J1815; J2150; J2250; J2916; J3010; J3370; J3490; J7030; P9016